=== PATIENT | female | born 1960 | race Hispanic/Latino ===

== ENCOUNTER 2018-02-15 23:44 | Emergency (ER) | payer MEDICAID ==
[2018-02-16 00:18] LABS: BASOPHILS % (AUTO) 0.6 % (0.0-5.0); EOSINOPHILS % (AUTO) 2.1 % (0.0-8.0); HEMATOCRIT 37.1 % (36-48); LYMPHOCYTES % (AUTO) 19.3 % (21.0-51.0); MEAN CORPUSCULAR HEMOGLOBIN 28.1 pg (27.0-33.0); MEAN CORPUSCULAR HGB CONC 33.8 g/dL (32.0-36.0); MEAN CORPUSCULAR VOLUME 83.2 fL (79-99); PLATELET COUNT (AUTO) 339 K/uL (130-400); RED BLOOD CELL COUNT(AUTO) 4.46 MIL/uL (4.00-5.50); RED CELL DISTRIBUTION WIDTH 15.1 % (11.0-15.5); WHITE BLOOD COUNT (AUTO) 12.2 K/uL (4.8-10.8)
[2018-02-16 00:30] LABS: ALBUMIN 2.9 g/dL (3.5-5.0); BILIRUBIN,TOTAL 0.2 mg/dL (0.2-1.0); CREATININE 0.9 mg/dL (0.5-1.5); POTASSIUM 3.8 mmol/L (3.5-5.1); TOTAL PROTEIN, SERUM 7.4 g/dL (6.0-8.3)
[2018-02-16] MEDS ORDERED: KETOROLAC TROMETHAMINE 30MG/ML ONE (00:40)
[2018-02-16] MEDS ORDERED: SODIUM CHLORIDE 0.9% 1000ML 1,000 ML IV ONE (01:04)
[2018-02-16] MEDS ORDERED: INSULIN HUMULIN R 100 UNIT/ML 3ML ONE (01:40)
== END 2018-02-16 02:42 | disposition home or self-care (01) ==
LOC: EDH 23:44
DX: B37.9 Candidiasis, unspecified (principal); E11.65 Type 2 diabetes mellitus with hyperglycemia; I10 Essential (primary) hypertension; J45.909 Unspecified asthma, uncomplicated; M81.0 Age-related osteoporosis without current pathological fracture; Z79.4 Long term (current) use of insulin
CPT/HCPCS: 36415; 80053; 82948 ×2; 85025; 96361; 96372; 96374; 99285; J1815; J1885; J7030

== ENCOUNTER 2018-04-07 09:18 | Emergency (ER) | payer MEDICAID ==
[2018-04-07] MEDS ORDERED: KETOROLAC TROMETHAMINE 30MG/ML ONE (10:04)
[2018-04-07 10:18] LABS: APPEARANCE,URINE CLEAR (CLEAR); BILIRUBIN,URINE SMALL (NEGATIVE); COLOR,URINE YELLOW (YELLOW); GLUCOSE, URINE (UA) >=1000 mg/dL (NEGATIVE); KETONES,URINE 5 mg/dL (NEGATIVE); LEUKOCYTE ESTERASE ,URINE NEGATIVE (NEGATIVE); NITRATE,URINE NEGATIVE (NEGATIVE); OCCULT BLOOD,URINE NEGATIVE (NEGATIVE); PROTEIN,URINE >=300 (NEGATIVE); UROBILINOGEN,URINE 0.2 mg/dL (0.2-1.0)
[2018-04-07 10:31] LABS: BACTERIA,URINE Few /HPF (None Seen); MUCUS,URINE Rare LPF (None Seen); RBC,URINE None Seen /HPF (0-1); SQUAMOUS EPITHELIAL CELL,UR Few /HPF (0-2); WBC,URINE None Seen /HPF (0-1)
[2018-05-09] MEDS ORDERED: METH4TAB15 PO (02:53)
[2018-05-09] MEDS ORDERED: HYDR-3421 PO (02:53)
[2018-05-09] MEDS ORDERED: TRAM50TA4 PO (02:57)
[2018-05-09] MEDS ORDERED: LORA10CA9 PO (02:57)
[2018-05-09] MEDS ORDERED: GABA-531 PO (02:57)
[2018-05-09] MEDS ORDERED: TERB250T51 PO (03:13)
[2018-05-09] MEDS ORDERED: ENAL20TA PO (03:13)
[2018-05-09] MEDS ORDERED: SULF500T8 PO (03:13)
[2018-05-09] MEDS ORDERED: NAPR-1174 PO (03:13)
[2018-05-09] MEDS ORDERED: ATOR40TA71 PO (03:13)
[2018-05-09] MEDS ORDERED: FOLI1TAB15 PO (03:13)
[2018-05-09] MEDS ORDERED: AMLO10TA2 PO (03:13)
[2018-05-09] MEDS ORDERED: ASPI-891 PO (03:16)
== END 2018-04-07 11:01 | disposition home or self-care (01) ==
LOC: EDH 09:18
DX: G89.29 Other chronic pain (principal); M54.9 Dorsalgia, unspecified; R21 Rash and other nonspecific skin eruption; M19.90 Unspecified osteoarthritis, unspecified site; J45.909 Unspecified asthma, uncomplicated; E11.9 Type 2 diabetes mellitus without complications; I10 Essential (primary) hypertension; M81.0 Age-related osteoporosis without current pathological fracture; Z98.890 Other specified postprocedural states
CPT/HCPCS: 81001; 96372; 99283; J1885

== ENCOUNTER 2018-07-21 19:57 | Emergency (ER) | payer MEDICAID ==
[~2018-07-21 19:57] MED LIST: AMLO10TA6 PO; ASPI-891 PO; ATOR40TA71 PO; ENAL20TA PO; FOLI1TAB15 PO; GABA-531 PO; HYDR-3421 PO; LORA10CA9 PO; METH4TAB15 PO; NAPR-1174 PO; SULF500T8 PO; TERB250T51 PO; TRAM50TA4 PO
[2018-07-21 20:55] LABS: APPEARANCE,URINE CLEAR (CLEAR); BILIRUBIN,URINE NEGATIVE (NEGATIVE); COLOR,URINE YELLOW (YELLOW); GLUCOSE, URINE (UA) NEGATIVE (NEGATIVE); KETONES,URINE NEGATIVE (NEGATIVE); LEUKOCYTE ESTERASE ,URINE NEGATIVE (NEGATIVE); NITRATE,URINE NEGATIVE (NEGATIVE); OCCULT BLOOD,URINE TRACE-INTACT (NEGATIVE); PROTEIN,URINE 100 (NEGATIVE); UROBILINOGEN,URINE 0.2 mg/dL (0.2-1.0)
[2018-07-21 21:17] LABS: BACTERIA,URINE Few /HPF (None Seen); RBC,URINE 0-1 /HPF (0-1); SQUAMOUS EPITHELIAL CELL,UR 0-2 /HPF (0-2)
[2018-07-21 21:38] LABS: BASOPHILS % (AUTO) 0.8 % (0.0-5.0); EOSINOPHILS % (AUTO) 2.5 % (0.0-8.0); HEMATOCRIT 30.1 % (36-48); LYMPHOCYTES % (AUTO) 26.6 % (21.0-51.0); MEAN CORPUSCULAR HEMOGLOBIN 25.3 pg (27.0-33.0); MEAN CORPUSCULAR HGB CONC 31.7 g/dL (32.0-36.0); MEAN CORPUSCULAR VOLUME 79.7 fL (79-99); MONOCYTES % (AUTO) 5.5 % (3.0-13.0); NEUTROPHILS % (AUTO) 64.6 % (40.0-77.0); PLATELET COUNT (AUTO) 343 K/uL (130-400); RED BLOOD CELL COUNT(AUTO) 3.78 MIL/uL (4.00-5.50); RED CELL DISTRIBUTION WIDTH 17.5 % (11.0-15.5); WHITE BLOOD COUNT (AUTO) 9.6 K/uL (4.8-10.8)
[2018-07-21 21:47] LABS: CREATININE 0.7 mg/dL (0.5-1.5); POTASSIUM 4.3 mmol/L (3.5-5.1)
[2018-07-21 21:52] LABS: ALBUMIN 2.7 g/dL (3.5-5.0); BILIRUBIN,TOTAL 0.1 mg/dL (0.2-1.0); TOTAL PROTEIN, SERUM 7.1 g/dL (6.0-8.3)
== END 2018-07-21 22:02 | disposition home or self-care (01) ==
LOC: EDH 19:57
DX: B34.9 Viral infection, unspecified (principal); E11.65 Type 2 diabetes mellitus with hyperglycemia; I10 Essential (primary) hypertension; R53.83 Other fatigue; J45.909 Unspecified asthma, uncomplicated; M81.0 Age-related osteoporosis without current pathological fracture; M06.9 Rheumatoid arthritis, unspecified; Z79.4 Long term (current) use of insulin
CPT/HCPCS: 36415; 80053; 81001; 82948; 85025; 93005

== ENCOUNTER 2019-02-20 11:02 | Emergency (ER) | payer MEDICAID ==
[~2019-02-20 11:02] MED LIST changes: -AMLO10TA6 PO; +AMLO10TA7 PO
[2019-02-20] MEDS ORDERED: NITROGLYCERIN 0.4 MG SL TAB SL ONE (11:33)
[2019-02-20 11:41] LABS: BASOPHILS % (AUTO) 0.1 % (0.0-5.0); EOSINOPHILS % (AUTO) 2.3 % (0.0-8.0); HEMATOCRIT 34.9 % (36-48); LYMPHOCYTES % (AUTO) 33.2 % (21.0-51.0); MEAN CORPUSCULAR HEMOGLOBIN 29.1 pg (27.0-33.0); MEAN CORPUSCULAR HGB CONC 33.9 g/dL (32.0-36.0); MEAN CORPUSCULAR VOLUME 85.8 fL (79-99); MONOCYTES % (AUTO) 6.8 % (3.0-13.0); NEUTROPHILS % (AUTO) 57.6 % (40.0-77.0); PLATELET COUNT (AUTO) 228 K/uL (130-400); RED BLOOD CELL COUNT(AUTO) 4.06 MIL/uL (4.00-5.50); RED CELL DISTRIBUTION WIDTH 13.8 % (11.0-15.5); WHITE BLOOD COUNT (AUTO) 7.9 K/uL (4.8-10.8)
[2019-02-20 11:51] LABS: CREATININE 0.7 mg/dL (0.5-1.5); POTASSIUM 5.1 mmol/L (3.5-5.1)
[2019-02-20 11:56] LABS: ALBUMIN 3.1 g/dL (3.5-5.0); BILIRUBIN,TOTAL 0.3 mg/dL (0.2-1.0); TOTAL PROTEIN, SERUM 6.8 g/dL (6.0-8.3)
[2019-02-20 11:58] LABS: B-TYPE NATRIURETIC PEPTIDE 122 pg/mL (0-100)
== END 2019-02-20 12:40 | disposition home or self-care (01) ==
LOC: EDH 11:02
DX: I10 Essential (primary) hypertension (principal); R07.89 Other chest pain; E11.9 Type 2 diabetes mellitus without complications; J45.909 Unspecified asthma, uncomplicated; M19.90 Unspecified osteoarthritis, unspecified site; Z98.890 Other specified postprocedural states; Z90.710 Acquired absence of both cervix and uterus
CPT/HCPCS: 36415; 71045; 80053; 83880; 84484; 85025; 85378; 93005

== ENCOUNTER 2019-06-21 02:18 | Emergency (ER) | payer MEDICAID ==
[2019-06-21] MEDS ORDERED: ASPIRIN 325 MG TABLET ONE (02:26)
[2019-06-21 02:40] LABS: BASOPHILS % (AUTO) 0.7 % (0.0-5.0); EOSINOPHILS % (AUTO) 3.5 % (0.0-8.0); HEMATOCRIT 35.8 % (36-48); LYMPHOCYTES % (AUTO) 36.5 % (21.0-51.0); MEAN CORPUSCULAR HEMOGLOBIN 29.2 pg (27.0-33.0); MEAN CORPUSCULAR HGB CONC 33.4 g/dL (32.0-36.0); MEAN CORPUSCULAR VOLUME 87.6 fL (79-99); MONOCYTES % (AUTO) 10.4 % (3.0-13.0); NEUTROPHILS % (AUTO) 48.9 % (40.0-77.0); NUCLEATED RED BLOOD CELLS 0.1 % (0.0-0.19); PLATELET COUNT (AUTO) 237 K/uL (130-400); RED BLOOD CELL COUNT(AUTO) 4.09 MIL/uL (4.00-5.50); RED CELL DISTRIBUTION WIDTH 15.5 % (11.0-15.5); WHITE BLOOD COUNT (AUTO) 7.4 K/uL (4.8-10.8)
[2019-06-21 02:53] LABS: INR 1.01 (0.85-1.15); PARTIAL THROMBOPLASTIN TIME 26.4 SEC (26.3-35.5); PROTHROMBIN TIME 10.6 SEC (9.6-11.6)
[2019-06-21 02:56] LABS: CREATININE 0.8 mg/dL (0.5-1.5); POTASSIUM 3.4 mmol/L (3.5-5.1)
[2019-06-21 03:06] LABS: BILIRUBIN,TOTAL 0.2 mg/dL (0.2-1.0); TOTAL PROTEIN, SERUM 6.6 g/dL (6.0-8.3)
== END 2019-06-21 05:35 | disposition home or self-care (01) ==
LOC: EDH 02:18
DX: R07.89 Other chest pain (principal); I10 Essential (primary) hypertension; E11.9 Type 2 diabetes mellitus without complications; M19.90 Unspecified osteoarthritis, unspecified site; J45.909 Unspecified asthma, uncomplicated; Z79.4 Long term (current) use of insulin
CPT/HCPCS: 36415; 71045; 80053; 82550; 83874; 84484; 85025; 85610; 85730; 93005

== ENCOUNTER → 2019-08-16 | Outpatient (CLI) | payer MEDICAID | END | disposition home or self-care (01) | LOC: SHCH 08:54 | PROVIDERS: ATTEND Internal Medicine Cardiovascular Disease | DX: I73.9 Peripheral vascular disease, unspecified (principal); I10 Essential (primary) hypertension; I25.10 Atherosclerotic heart disease of native coronary artery without angina pectoris | CPT/HCPCS: 93925 ==

== ENCOUNTER 2019-08-17 10:48 | Emergency (ER) | payer MEDICAID ==
[2019-08-17 11:30] LABS: BASOPHILS % (AUTO) 0.5 % (0.0-5.0); EOSINOPHILS % (AUTO) 1.6 % (0.0-8.0); HEMATOCRIT 35.8 % (36-48); LYMPHOCYTES % (AUTO) 22.5 % (21.0-51.0); MEAN CORPUSCULAR HEMOGLOBIN 30.2 pg (27.0-33.0); MEAN CORPUSCULAR HGB CONC 33.8 g/dL (32.0-36.0); MEAN CORPUSCULAR VOLUME 89.2 fL (79-99); MONOCYTES % (AUTO) 6.5 % (3.0-13.0); NEUTROPHILS % (AUTO) 68.9 % (40.0-77.0); NUCLEATED RED BLOOD CELLS 0.1 % (0.0-0.19); PLATELET COUNT (AUTO) 237 K/uL (130-400); RED BLOOD CELL COUNT(AUTO) 4.02 MIL/uL (4.00-5.50); RED CELL DISTRIBUTION WIDTH 15.1 % (11.0-15.5); WHITE BLOOD COUNT (AUTO) 9.8 K/uL (4.8-10.8)
[2019-08-17 11:42] LABS: CREATININE 0.8 mg/dL (0.5-1.5); INR 1.01 (0.85-1.15); PARTIAL THROMBOPLASTIN TIME 26.1 SEC (26.3-35.5); POTASSIUM 4.5 mmol/L (3.5-5.1); PROTHROMBIN TIME 10.6 SEC (9.6-11.6)
[2019-08-17 11:47] LABS: ALBUMIN 3.1 g/dL (3.5-5.0); BILIRUBIN,TOTAL 0.3 mg/dL (0.2-1.0); TOTAL PROTEIN, SERUM 7.3 g/dL (6.0-8.3)
[2019-08-17 13:08] LABS: APPEARANCE,URINE Clear (CLEAR); BILIRUBIN,URINE Negative (NEGATIVE); COLOR,URINE Yellow (YELLOW); GLUCOSE, URINE (UA) >=1000 mg/dL (NEGATIVE); KETONES,URINE Negative (NEGATIVE); LEUKOCYTE ESTERASE ,URINE Negative (NEGATIVE); NITRATE,URINE Negative (NEGATIVE); OCCULT BLOOD,URINE Small (NEGATIVE); PROTEIN,URINE 300 mg/dL (NEGATIVE)
[2019-08-17 13:40] LABS: BACTERIA,URINE Few /HPF (None Seen); SQUAMOUS EPITHELIAL CELL,UR 0-2 /HPF (0-2); WBC,URINE 0-1 /HPF (0-1)
== END 2019-08-17 14:58 | disposition home or self-care (01) ==
LOC: EDH 10:48
DX: R33.9 Retention of urine, unspecified (principal); I10 Essential (primary) hypertension; E11.65 Type 2 diabetes mellitus with hyperglycemia; J45.909 Unspecified asthma, uncomplicated; M81.0 Age-related osteoporosis without current pathological fracture; M06.9 Rheumatoid arthritis, unspecified; Z79.4 Long term (current) use of insulin
CPT/HCPCS: 36415; 51702; 71045; 80053; 81001; 82550; 83880; 84484; 85025; 85610; 85730; 93005

== ENCOUNTER 2019-09-04 11:38 | Emergency (ER) | payer MEDICAID ==
[2019-09-04] MEDS ORDERED: IPRATROPIUM/ALBUTEROL SULFATE 3 ML SOLUTION IH ONE ×2 (12:36→15:30)
[2019-09-04] MEDS ORDERED: FUROSEMIDE 10 MG/ML 4ML VIAL ONE (13:15)
[2019-09-04 13:28] LABS: BASOPHILS % (AUTO) 0.7 % (0.0-5.0); EOSINOPHILS % (AUTO) 1.5 % (0.0-8.0); LYMPHOCYTES % (AUTO) 26.2 % (21.0-51.0); MEAN CORPUSCULAR HEMOGLOBIN 29.7 pg (27.0-33.0); MEAN CORPUSCULAR HGB CONC 33.2 g/dL (32.0-36.0); MEAN CORPUSCULAR VOLUME 89.4 fL (79-99); MONOCYTES % (AUTO) 5.8 % (3.0-13.0); NEUTROPHILS % (AUTO) 65.8 % (40.0-77.0); NUCLEATED RED BLOOD CELLS 0.1 % (0.0-0.19); PLATELET COUNT (AUTO) 244 K/uL (130-400); RED CELL DISTRIBUTION WIDTH 15.3 % (11.0-15.5); WHITE BLOOD COUNT (AUTO) 9.3 K/uL (4.8-10.8)
[2019-09-04] MEDS ORDERED: CEFTRIAXONE SODIUM 1 GM ONE (13:48)
[2019-09-04] MEDS ORDERED: HYDRALAZINE HCL 20 MG/ML VIAL ONE (13:48)
[2019-09-04] MEDS ORDERED: SODIUM CHLORIDE 0.9% 50 ML IV ONE (13:49)
[2019-09-04 14:06] LABS: CREATININE 0.7 mg/dL (0.5-1.5); POTASSIUM 3.8 mmol/L (3.5-5.1)
[2019-09-04 14:10] LABS: ALBUMIN 3.1 g/dL (3.5-5.0); BILIRUBIN,TOTAL 0.4 mg/dL (0.2-1.0); TOTAL PROTEIN, SERUM 7.5 g/dL (6.0-8.3)
[2019-09-04 14:55] LABS: APPEARANCE,URINE Clear (CLEAR); BILIRUBIN,URINE Negative (NEGATIVE); COLOR,URINE Yellow (YELLOW); GLUCOSE, URINE (UA) Negative (NEGATIVE); KETONES,URINE Negative (NEGATIVE); LEUKOCYTE ESTERASE ,URINE Negative (NEGATIVE); NITRATE,URINE Negative (NEGATIVE); OCCULT BLOOD,URINE Negative (NEGATIVE); PH,URINE 6.5 (5.0-8.0); PROTEIN,URINE Trace mg/dL (NEGATIVE); UROBILINOGEN,URINE 0.2 mg/dL (0.2-1.0)
[2019-09-04 15:50] LABS: BACTERIA,URINE Few /HPF (None Seen); RBC,URINE 0-1 /HPF (0-1); WBC,URINE 0-1 /HPF (0-1)
[2019-09-04 15:51] LABS: SQUAMOUS EPITHELIAL CELL,UR 0-2 /HPF (0-2)
== END 2019-09-04 15:48 | disposition home or self-care (01) ==
LOC: EDH 11:38
DX: J98.01 Acute bronchospasm (principal); J18.8 Other pneumonia, unspecified organism; J81.1 Chronic pulmonary edema; I16.0 Hypertensive urgency; E11.9 Type 2 diabetes mellitus without complications; M81.0 Age-related osteoporosis without current pathological fracture; M06.9 Rheumatoid arthritis, unspecified; Z79.4 Long term (current) use of insulin
CPT/HCPCS: 36415; 71045; 80053; 81001; 84484; 85025; 85378; 93005; 94640 ×2; 96365; 96375; 99291; J0360; J0696; J1940

== ENCOUNTER → 2019-12-27 | Outpatient (CLI) | payer MEDICAID ==
[~2019-12-27] MED LIST changes: +IOHEXOL 350 MG/ML 100ML INFUS..BTL IV ONE; +IOHEXOL-350 50ML VIAL IV ONE
== END | disposition home or self-care (01) ==
LOC: RAH 08:37
PROVIDERS: ATTEND Internal Medicine Cardiovascular Disease
DX: I70.203 Unspecified atherosclerosis of native arteries of extremities, bilateral legs (principal); I25.10 Atherosclerotic heart disease of native coronary artery without angina pectoris; J98.11 Atelectasis; N28.1 Cyst of kidney, acquired
CPT/HCPCS: 75635; Q9967 ×2

== ENCOUNTER 2020-09-04 21:17 | Emergency (ER) | payer MEDICAID ==
[~2020-09-04 21:17] MED LIST changes: +AMLO-258 PO; -AMLO10TA7 PO; -ENAL20TA PO; +ENAL20TA18 PO; -IOHEXOL 350 MG/ML 100ML INFUS..BTL IV ONE; -IOHEXOL-350 50ML VIAL IV ONE
[2020-09-04 22:27] LABS: APPEARANCE,URINE Clear (CLEAR); BILIRUBIN,URINE Negative (NEGATIVE); COLOR,URINE Yellow (YELLOW); GLUCOSE, URINE (UA) 500 mg/dL (NEGATIVE); KETONES,URINE Negative (NEGATIVE); LEUKOCYTE ESTERASE ,URINE Negative (NEGATIVE); NITRATE,URINE Negative (NEGATIVE); OCCULT BLOOD,URINE Small (NEGATIVE); PH,URINE 5.5 (5.0-8.0); PROTEIN,URINE 300 mg/dL (NEGATIVE); UROBILINOGEN,URINE 0.2 mg/dL (0.2-1.0)
[2020-09-04 23:19] LABS: AMORPHOUS SEDIMENT,UR Few /LPF (None Seen); BACTERIA,URINE None Seen /HPF (None Seen); RBC,URINE 0-1 /HPF (0-1); SQUAMOUS EPITHELIAL CELL,UR Rare /HPF (0-2); WBC,URINE None Seen /HPF (0-1)
== END 2020-09-05 02:47 | disposition home or self-care (01) ==
LOC: EDH 21:17
DX: R33.9 Retention of urine, unspecified (principal); J45.909 Unspecified asthma, uncomplicated; M19.90 Unspecified osteoarthritis, unspecified site; M81.0 Age-related osteoporosis without current pathological fracture; M06.9 Rheumatoid arthritis, unspecified
CPT/HCPCS: 51702; 81001

== ENCOUNTER 2020-10-03 10:20 | Inpatient (IN) | payer MEDICAID ==
[~2020-10-03] VITALS: Ht 142.2 cm; Wt 77.1 kg
[2020-10-03] MEDS ORDERED: ASPIRIN 325 MG TABLET ONE (10:53)
[2020-10-03 10:57] LABS: BASOPHILS % (AUTO) 0.3 % (0.0-5.0); EOSINOPHILS % (AUTO) 2.8 % (0.0-8.0); HEMATOCRIT 37.5 % (36-48); LYMPHOCYTES % (AUTO) 19.7 % (21.0-51.0); MEAN CORPUSCULAR HEMOGLOBIN 27.5 pg (27.0-33.0); MEAN CORPUSCULAR HGB CONC 32.3 g/dL (32.0-36.0); MEAN CORPUSCULAR VOLUME 85.2 fL (79-99); MONOCYTES % (AUTO) 5.6 % (3.0-13.0); NEUTROPHILS % (AUTO) 71.2 % (40.0-77.0); PLATELET COUNT (AUTO) 258 K/uL (130-400); RED CELL DISTRIBUTION WIDTH 13.9 % (11.0-15.5); WHITE BLOOD COUNT (AUTO) 8.9 K/uL (4.8-10.8)
[2020-10-03 11:08] LABS: POTASSIUM 4.3 mmol/L (3.5-5.1)
[2020-10-03 11:12] LABS: BILIRUBIN,TOTAL 0.2 mg/dL (0.2-1.0); TOTAL PROTEIN, SERUM 6.2 g/dL (6.0-8.3)
[2020-10-03 11:35] LABS: B-TYPE NATRIURETIC PEPTIDE 100 pg/mL (0-100)
[2020-10-03 11:55] LABS: INR 0.94 (0.85-1.15); PARTIAL THROMBOPLASTIN TIME 20.8 SEC (26.3-35.5); PROTHROMBIN TIME 10.2 SEC (9.6-11.6)
[2020-10-03] MEDS ORDERED: NITROGLYCERIN 1GM/1 INCH PACKET TD ONE (12:53)
[2020-10-03] MEDS ORDERED: ACETAMINOPHEN 325 MG TAB PO PRN ×2 (13:15)
[2020-10-03] MEDS: NITROGLYCERIN 1GM/1 INCH PACKET TD SCH ×2 (13:15→22:38)
[2020-10-03] MEDS ORDERED: ONDANSETRON HCL 4 MG/2 ML VIAL IV PRN (13:15)
[2020-10-03] MEDS ORDERED: LACTULOSE 20 GM/30 ML UDCUP PO PRN (13:15)
[2020-10-03 13:55] LABS: CREATINE KINASE, TOTAL 86 U/L (21-232); MYOGLOBIN 25 ng/mL (10-92); THYROID STIMULATING HORMONE 3.84 uIU/mL (0.36-3.74); TROPONIN I < 0.04 ng/mL (0.00-0.06)
[2020-10-03] MEDS: FUROSEMIDE 10 MG/ML 4ML VIAL IVP SCH ×2 (14:00→22:34)
[2020-10-03] MEDS ORDERED: FUROSEMIDE 10 MG/ML 4ML VIAL ONE (14:46)
[2020-10-03 15:22] LABS: APPEARANCE,URINE Clear (CLEAR); BILIRUBIN,URINE Negative (NEGATIVE); COLOR,URINE Yellow (YELLOW); GLUCOSE, URINE (UA) 500 mg/dL (NEGATIVE); KETONES,URINE Negative (NEGATIVE); LEUKOCYTE ESTERASE ,URINE Negative (NEGATIVE); NITRATE,URINE Negative (NEGATIVE); OCCULT BLOOD,URINE Small (NEGATIVE); PH,URINE 6.5 (5.0-8.0); PROTEIN,URINE >=1000 mg/dL (NEGATIVE)
[2020-10-03 15:42] LABS: BACTERIA,URINE Rare /HPF (None Seen); MUCUS,URINE Few LPF (None Seen); RBC,URINE 0-1 /HPF (0-1); WBC,URINE 0-1 /HPF (0-1)
[2020-10-03 15:43] LABS: HYALINE CASTS, URINE 0-1 /LPF (0-1 /LPF)
[2020-10-03] MEDS: INSULIN LISPRO 100 UNIT/ML 3ML SQ SCH ×3 (16:30→22:35)
[2020-10-03 17:34] VITALS: BP 201/100
[2020-10-03 19:50] VITALS: BP 191/78
[2020-10-03 21:31] LABS: CREATINE KINASE, TOTAL 78 U/L (21-232); MYOGLOBIN 25 ng/mL (10-92); TROPONIN I < 0.04 ng/mL (0.00-0.06)
[2020-10-03] MEDS: FAMOTIDINE 20MG TAB 20 MG TAB PO SCH (22:34)
[2020-10-03] MEDS: INSULIN GLARGINE 100 UNITS/ML 10 ML VIAL SQ SCH (22:36)
[2020-10-04] VITALS (7 sets, daily range): BP systolic 126–174; BP diastolic 68–85
[2020-10-04 04:41] LABS: CARBON DIOXIDE 30 mmol/L (21-32); CHLORIDE 106 mmol/L (101-111); CREATININE 0.8 mg/dL (0.5-1.5); GLOMERULAR FILTR. RATE CALC 78 mL/min (>60); GLUCOSE,RANDOM 87 mg/dL (70-105); POTASSIUM 3.3 mmol/L (3.5-5.1); SODIUM SERUM 143 mmol/L (136-145); UREA NITROGEN, BLOOD 16 mg/dL (7-18)
[2020-10-04 04:54] LABS: CHOLESTEROL 306 mg/dL (<200); CREATINE KINASE, TOTAL 73 U/L (21-232); HDL CHOLESTEROL 68 mg/dL (35-85); LDL DIRECT 202 mg/dL (0-99); MYOGLOBIN 27 ng/mL (10-92); TRIGLYCERIDES 215 mg/dL (30-200); TROPONIN I < 0.04 ng/mL (0.00-0.06)
[2020-10-04] MEDS: INSULIN LISPRO 100 UNIT/ML 3ML SQ SCH ×7 (06:01→20:34)
[2020-10-04] MEDS: NITROGLYCERIN 1GM/1 INCH PACKET TD SCH ×3 (06:02→20:55)
[2020-10-04] MEDS ORDERED: POTASSIUM CHLORIDE 20MEQ/100ML 100 ML IV PRN ×2 (08:00→10:00)
[2020-10-04] MEDS ORDERED: POTASSIUM CHLORIDE 10% ELIXIR 20 MEQ/15 ML UDCUP PO PRN ×2 (08:00→10:00)
[2020-10-04] MEDS ORDERED: POTASSIUM CHLORIDE 20 MEQ ERTAB PO PRN ×2 (08:00→10:00)
[2020-10-04] MEDS: FAMOTIDINE 20MG TAB 20 MG TAB PO SCH ×2 (09:37→20:34)
[2020-10-04] MEDS: ASPIRIN 325 MG TABLET PO SCH (09:37)
[2020-10-04] MEDS: FUROSEMIDE 10 MG/ML 4ML VIAL IVP SCH ×3 (09:37→20:34)
[2020-10-04] MEDS: METOPROLOL TARTRATE 25 MG TAB PO SCH ×2 (09:38→20:34)
[2020-10-04] MEDS: ENOXAPARIN SODIUM 40 MG/0.4 ML SYRINGE SQ SCH (09:38)
[2020-10-04] MEDS ORDERED: LIDOCAINE HCL-MPF 1% 2ML VIAL IV PRN (10:00)
[2020-10-04] MEDS ORDERED: SODIUM CHLORIDE 0.9% 250 ML IV ONE (12:53)
[2020-10-04 13:43] LABS: MAGNESIUM 1.9 mg/dL (1.80-2.40)
[2020-10-04] MEDS: SULFASALAZINE 500 MG TAB.DR PO SCH (20:34)
[2020-10-04] MEDS: INSULIN GLARGINE 100 UNITS/ML 10 ML VIAL SQ SCH (20:41)
[2020-10-04] MEDS ORDERED: SULFASALAZINE PO SCH (21:00)
[2020-10-05] VITALS: BP 139/62
[2020-10-05 03:59] VITALS: BP 153/70
[2020-10-05] MEDS: NITROGLYCERIN 1GM/1 INCH PACKET TD SCH ×2 (05:04→13:15)
[2020-10-05] MEDS: INSULIN LISPRO 100 UNIT/ML 3ML SQ SCH ×4 (06:31→11:45)
[2020-10-05 08:00] VITALS: BP 154/70
[2020-10-05] MEDS ORDERED: FUROSEMIDE 40 MG TABLET PO SCH (09:00)
[2020-10-05] MEDS: ASPIRIN 325 MG TABLET PO SCH (09:08)
[2020-10-05] MEDS: SULFASALAZINE 500 MG TAB.DR PO SCH (09:08)
[2020-10-05] MEDS: FAMOTIDINE 20MG TAB 20 MG TAB PO SCH (09:08)
[2020-10-05] MEDS: ENOXAPARIN SODIUM 40 MG/0.4 ML SYRINGE SQ SCH (09:14)
[2020-10-05 12:00] VITALS: BP 163/74
[2020-10-05 16:00] VITALS: BP 163/71
== END 2020-10-05 17:00 | disposition home or self-care (01) | DRG 194 ==
LOC: EDH 10:20 → EDHIP 10:21 → 4BH 17:05
PROVIDERS: ADMIT Internal Medicine; ATTEND Internal Medicine
DX: I11.0 Hypertensive heart disease with heart failure (principal); R09.02 Hypoxemia; E78.5 Hyperlipidemia, unspecified; M81.0 Age-related osteoporosis without current pathological fracture; J45.909 Unspecified asthma, uncomplicated; M06.9 Rheumatoid arthritis, unspecified; E11.9 Type 2 diabetes mellitus without complications; G47.30 Sleep apnea, unspecified; Z79.4 Long term (current) use of insulin; Z79.899 Other long term (current) drug therapy; Z91.11 Patient's noncompliance with dietary regimen; Z91.14 Patient's other noncompliance with medication regimen; Z91.19 Patient's noncompliance with other medical treatment and regimen; I50.33 Acute on chronic diastolic (congestive) heart failure
CPT/HCPCS: 36415; 71045; 80048; 80053; 80061; 81001; 82550; 82948; 83036; 83735; 83874; 83880; 84145; 84439; 84443; 84484; 85025; 85610; 85730; 93005; 93306; 93356; 94760; G0378; J1650; J1940; J3480; J3490; J7050

== ENCOUNTER 2020-11-09 12:18 | Emergency (ER) | payer MEDICAID ==
[~2020-11-09 12:18] MED LIST changes: -HYDR-3421 PO; -LORA10CA9 PO; -METH4TAB15 PO; -NAPR-1174 PO
[2020-11-09 13:05] LABS: BASOPHILS % (AUTO) 0.5 % (0.0-5.0); EOSINOPHILS % (AUTO) 1.1 % (0.0-8.0); HEMATOCRIT 38.8 % (36-48); LYMPHOCYTES % (AUTO) 19.8 % (21.0-51.0); MEAN CORPUSCULAR HEMOGLOBIN 27.8 pg (27.0-33.0); MEAN CORPUSCULAR HGB CONC 33.2 g/dL (32.0-36.0); MEAN CORPUSCULAR VOLUME 83.6 fL (79-99); NEUTROPHILS % (AUTO) 65.1 % (40.0-77.0); PLATELET COUNT (AUTO) 216 K/uL (130-400); RED BLOOD CELL COUNT(AUTO) 4.64 MIL/uL (4.00-5.50); RED CELL DISTRIBUTION WIDTH 13.7 % (11.0-15.5); WHITE BLOOD COUNT (AUTO) 6.4 K/uL (4.8-10.8)
[2020-11-09 13:17] LABS: RAPID GROUP A STREP NEGATIVE (NEGATIVE)
[2020-11-09 13:17] LABS: INR 0.98 (0.85-1.15); PROTHROMBIN TIME 10.5 SEC (9.6-11.6)
[2020-11-09 13:18] LABS: PARTIAL THROMBOPLASTIN TIME 26.3 SEC (26.3-35.5)
[2020-11-09 13:21] LABS: BILIRUBIN,URINE Negative (NEGATIVE); COLOR,URINE Yellow (YELLOW); GLUCOSE, URINE (UA) 500 mg/dL (NEGATIVE); KETONES,URINE Negative (NEGATIVE); LEUKOCYTE ESTERASE ,URINE Negative (NEGATIVE); NITRATE,URINE Negative (NEGATIVE); OCCULT BLOOD,URINE Small (NEGATIVE); PROTEIN,URINE >=1000 mg/dL (NEGATIVE); UROBILINOGEN,URINE 0.2 mg/dL (0.2-1.0)
[2020-11-09 13:22] LABS: APPEARANCE,URINE Clear (CLEAR); POTASSIUM 4.1 mmol/L (3.5-5.1)
[2020-11-09 13:25] LABS: B-TYPE NATRIURETIC PEPTIDE 110 pg/mL (0-100)
[2020-11-09 13:28] LABS: ALBUMIN 2.2 g/dL (3.5-5.0); BILIRUBIN,TOTAL 0.2 mg/dL (0.2-1.0); TOTAL PROTEIN, SERUM 6.3 g/dL (6.0-8.3)
[2020-11-09 13:30] LABS: BACTERIA,URINE Moderate /HPF (None Seen); MUCUS,URINE Few LPF (None Seen); SQUAMOUS EPITHELIAL CELL,UR 30-50 /HPF (0-2); WBC,URINE None Seen /HPF (0-1)
[2020-11-09] MEDS ORDERED: INSULIN HUMULIN R 100 UNIT/ML 3ML ONE (14:54)
[2020-11-09 15:01] LABS: ABG BASE EXCESS 0.6 mmol/L (-2.0-3.0); ABG HCO3 25.1 mmol/L (21.0-28.0); ABG OXYGEN SATURATION 95.4 % (95.0-99.0); ABG PCO2 40 mmHg (32-45)
== END 2020-11-09 17:32 | disposition home or self-care (01) ==
LOC: EDH 12:18
DX: U07.1 COVID-19 (principal); I10 Essential (primary) hypertension; E11.65 Type 2 diabetes mellitus with hyperglycemia; M06.9 Rheumatoid arthritis, unspecified; J45.909 Unspecified asthma, uncomplicated; M81.0 Age-related osteoporosis without current pathological fracture; M19.90 Unspecified osteoarthritis, unspecified site
CPT/HCPCS: 36415; 36600; 71045; 80053; 81001; 82550; 82803; 82948 ×2; 83690; 83880; 84484; 85025; 85378; 85610; 85730; 87040 ×2; 87088; 87426; 87804 ×2; 87880; 93005; 96374; 99285; J1815

== ENCOUNTER 2020-11-28 18:04 | Emergency (ER) | payer MEDICAID ==
[2020-11-28 18:50] LABS: APPEARANCE,URINE Cloudy (CLEAR); BILIRUBIN,URINE Negative (NEGATIVE); COLOR,URINE Yellow (YELLOW); GLUCOSE, URINE (UA) 250 mg/dL (NEGATIVE); KETONES,URINE Negative (NEGATIVE); LEUKOCYTE ESTERASE ,URINE Negative (NEGATIVE); NITRATE,URINE Negative (NEGATIVE); OCCULT BLOOD,URINE Small (NEGATIVE); PH,URINE 5.5 (5.0-8.0); PROTEIN,URINE 300 mg/dL (NEGATIVE); UROBILINOGEN,URINE 0.2 mg/dL (0.2-1.0)
[2020-11-28 19:01] LABS: BACTERIA,URINE Few /HPF (None Seen); MUCUS,URINE Rare LPF (None Seen); SQUAMOUS EPITHELIAL CELL,UR 0-2 /HPF (0-2)
[2020-11-28 19:02] LABS: AMORPHOUS SEDIMENT,UR Many /LPF (None Seen)
== END 2020-11-28 19:12 | disposition home or self-care (01) ==
LOC: EDH 18:04
DX: R33.9 Retention of urine, unspecified (principal); M19.90 Unspecified osteoarthritis, unspecified site; J45.909 Unspecified asthma, uncomplicated; E11.9 Type 2 diabetes mellitus without complications; I10 Essential (primary) hypertension; M06.9 Rheumatoid arthritis, unspecified
CPT/HCPCS: 51702; 81001

== ENCOUNTER → 2020-12-31 | Outpatient (CLI) | payer MEDICAID ==
[~2020-12-31] VITALS: Ht 149.9 cm; Wt 78.0 kg
[~2020-12-31] MED LIST changes: +REGADENOSON 0.4 MG/5 ML PF SYG IVP SCH
== END | disposition home or self-care (01) ==
LOC: SHCH 08:06
PROVIDERS: ATTEND Internal Medicine Cardiovascular Disease
DX: I25.119 Atherosclerotic heart disease of native coronary artery with unspecified angina pectoris (principal); I50.32 Chronic diastolic (congestive) heart failure; R06.00 Dyspnea, unspecified
CPT/HCPCS: 78452; 93017; 96374; A9500 ×2; J2785

== ENCOUNTER 2021-02-11 02:39 | Emergency (ER) | payer MEDICAID ==
[~2021-02-11 02:39] MED LIST changes: -REGADENOSON 0.4 MG/5 ML PF SYG IVP SCH
[2021-02-11] MEDS ORDERED: CLONIDINE HCL 0.2 MG TABLET PO ONE (04:07)
[2021-02-11] MEDS ORDERED: PROCHLORPERAZINE EDISYLATE 10 MG/2 ML VIAL ONE (04:46)
[2021-02-11] MEDS ORDERED: METHYLPREDNISOLONE SOD SUCC 40MG/ML 1ML ONE (04:46)
[2021-02-11] MEDS ORDERED: SODIUM CHLORIDE 0.9% 1000ML 1,000 ML IV ONE (04:47)
[2021-02-11 05:27] LABS: BASOPHILS % (AUTO) 0.8 % (0.0-5.0); EOSINOPHILS % (AUTO) 2.7 % (0.0-8.0); HEMATOCRIT 36.1 % (36-48); LYMPHOCYTES % (AUTO) 24.1 % (21.0-51.0); MEAN CORPUSCULAR HEMOGLOBIN 28.8 pg (27.0-33.0); MEAN CORPUSCULAR HGB CONC 33.2 g/dL (32.0-36.0); MEAN CORPUSCULAR VOLUME 86.6 fL (79-99); MONOCYTES % (AUTO) 7.7 % (3.0-13.0); NEUTROPHILS % (AUTO) 64.4 % (40.0-77.0); PLATELET COUNT (AUTO) 278 K/uL (130-400); RED BLOOD CELL COUNT(AUTO) 4.17 MIL/uL (4.00-5.50); RED CELL DISTRIBUTION WIDTH 13.2 % (11.0-15.5); WHITE BLOOD COUNT (AUTO) 7.8 K/uL (4.8-10.8)
[2021-02-11 05:29] LABS: APPEARANCE,URINE Cloudy (CLEAR); BILIRUBIN,URINE Negative (NEGATIVE); COLOR,URINE Yellow (YELLOW); GLUCOSE, URINE (UA) TRACE mg/dL (NEGATIVE); KETONES,URINE Negative (NEGATIVE); LEUKOCYTE ESTERASE ,URINE Negative (NEGATIVE); NITRATE,URINE Negative (NEGATIVE); OCCULT BLOOD,URINE Trace (NEGATIVE); PH,URINE 5.5 (5.0-8.0); PROTEIN,URINE >=1000 mg/dL (NEGATIVE); UROBILINOGEN,URINE 0.2 mg/dL (0.2-1.0)
[2021-02-11 05:36] LABS: AMPHET/METH SCREEN,URINE NEGATIVE (NEGATIVE); BARBITURATE SCREEN, URINE NEGATIVE (NEGATIVE); BENZODIAZEPINES SCREEN,URINE NEGATIVE (NEGATIVE); CANNABINOID SCREEN,URINE NEGATIVE (NEGATIVE); COCAINE SCREEN,URINE NEGATIVE (NEGATIVE); OPIATE SCREEN,URINE NEGATIVE (NEGATIVE); PHENCYCLIDINE SCREEN,URINE NEGATIVE (NEGATIVE)
[2021-02-11 05:36] LABS: POTASSIUM 4.3 mmol/L (3.5-5.1)
[2021-02-11 05:41] LABS: ALBUMIN 2.2 g/dL (3.5-5.0); BILIRUBIN,TOTAL 0.1 mg/dL (0.2-1.0); TOTAL PROTEIN, SERUM 6.2 g/dL (6.0-8.3)
[2021-02-11 05:42] LABS: BACTERIA,URINE Few /HPF (None Seen); RBC,URINE None Seen /HPF (0-1); SQUAMOUS EPITHELIAL CELL,UR Moderate /HPF (0-2); WBC,URINE None Seen /HPF (0-1)
[2021-02-11 05:46] LABS: INR 0.98 (0.85-1.15); PARTIAL THROMBOPLASTIN TIME 23.5 SEC (26.3-35.5); PROTHROMBIN TIME 10.2 SEC (9.6-11.6)
== END 2021-02-11 05:53 | disposition home or self-care (01) ==
LOC: EDH 02:39
DX: I10 Essential (primary) hypertension (principal); H81.393 Other peripheral vertigo, bilateral; M06.9 Rheumatoid arthritis, unspecified; M81.0 Age-related osteoporosis without current pathological fracture; E11.9 Type 2 diabetes mellitus without complications; J45.909 Unspecified asthma, uncomplicated; Z90.710 Acquired absence of both cervix and uterus; Z90.49 Acquired absence of other specified parts of digestive tract
CPT/HCPCS: 36415; 80053; 80305; 81001; 84484; 85025; 85610; 85730; 96361; 96374; 96375; 99284; J0780; J2920; J7030

== ENCOUNTER 2021-02-27 11:04 | Emergency (ER) | payer MEDICAID ==
[2021-02-27 11:27] LABS: BASOPHILS % (AUTO) 0.7 % (0.0-5.0); EOSINOPHILS % (AUTO) 3.3 % (0.0-8.0); HEMATOCRIT 38.2 % (36-48); LYMPHOCYTES % (AUTO) 27.4 % (21.0-51.0); MEAN CORPUSCULAR HEMOGLOBIN 28.5 pg (27.0-33.0); MEAN CORPUSCULAR HGB CONC 33.2 g/dL (32.0-36.0); MEAN CORPUSCULAR VOLUME 85.7 fL (79-99); MONOCYTES % (AUTO) 6.9 % (3.0-13.0); NEUTROPHILS % (AUTO) 61.1 % (40.0-77.0); PLATELET COUNT (AUTO) 272 K/uL (130-400); RED BLOOD CELL COUNT(AUTO) 4.46 MIL/uL (4.00-5.50); RED CELL DISTRIBUTION WIDTH 12.7 % (11.0-15.5)
[2021-02-27] MEDS ORDERED: ACETAMINOPHEN 325 MG TAB ONE (11:30)
[2021-02-27] MEDS ORDERED: LABETALOL 20 MG/4 ML DISP.SYRIN IV ONE (11:31)
[2021-02-27 11:43] LABS: ALBUMIN 2.5 g/dL (3.5-5.0); BILIRUBIN,TOTAL 0.2 mg/dL (0.2-1.0); CREATININE 1.2 mg/dL (0.5-1.5); POTASSIUM 4.5 mmol/L (3.5-5.1); TOTAL PROTEIN, SERUM 6.9 g/dL (6.0-8.3)
[2021-02-27 11:55] LABS: APPEARANCE,URINE Clear (CLEAR); BILIRUBIN,URINE Negative (NEGATIVE); COLOR,URINE Yellow (YELLOW); GLUCOSE, URINE (UA) >=1000 mg/dL (NEGATIVE); KETONES,URINE Negative (NEGATIVE); LEUKOCYTE ESTERASE ,URINE Negative (NEGATIVE); NITRATE,URINE Negative (NEGATIVE); OCCULT BLOOD,URINE Negative (NEGATIVE); PROTEIN,URINE 300 mg/dL (NEGATIVE)
[2021-02-27] MEDS ORDERED: INSULIN HUMULIN R 100 UNIT/ML 3ML ONE (12:12)
[2021-02-27 12:14] LABS: RBC,URINE 0-1 /HPF (0-1)
[2021-02-27 12:15] LABS: BACTERIA,URINE Rare /HPF (None Seen); WBC,URINE 0-1 /HPF (0-1)
[2021-02-27 12:16] LABS: SQUAMOUS EPITHELIAL CELL,UR Few /HPF (0-2)
[2021-02-27 12:17] LABS: YEAST,URINE BUDDING Rare /HPF (None Seen)
== END 2021-02-27 14:28 | disposition home or self-care (01) ==
LOC: EDH 11:04
DX: I10 Essential (primary) hypertension (principal); E08.65 Diabetes mellitus due to underlying condition with hyperglycemia; M06.9 Rheumatoid arthritis, unspecified; J45.909 Unspecified asthma, uncomplicated; M19.90 Unspecified osteoarthritis, unspecified site; Z90.49 Acquired absence of other specified parts of digestive tract; Z90.710 Acquired absence of both cervix and uterus; Z98.890 Other specified postprocedural states
CPT/HCPCS: 36415; 76705; 80053; 81001; 82150; 82948; 83690; 85025; 93005; 96361 ×2; 96372; 96374; 96375; 99285; J1815

== ENCOUNTER → 2021-03-14 | Outpatient (CLI) | payer MEDICAID | END | disposition home or self-care (01) | LOC: SHCH 09:29 | PROVIDERS: ATTEND Internal Medicine Cardiovascular Disease | DX: I73.9 Peripheral vascular disease, unspecified (principal) | CPT/HCPCS: 93925 ==

== ENCOUNTER → 2021-05-06 | Outpatient (CLI) | payer MEDICAID ==
[~2021-05-06] MED LIST changes: +REGADENOSON 0.4 MG/5 ML PF SYG IVP SCH
== END | disposition home or self-care (01) ==
LOC: SHCH 07:47
PROVIDERS: ATTEND Internal Medicine Cardiovascular Disease
DX: I11.0 Hypertensive heart disease with heart failure (principal); I50.32 Chronic diastolic (congestive) heart failure; I25.119 Atherosclerotic heart disease of native coronary artery with unspecified angina pectoris; F41.9 Anxiety disorder, unspecified; R53.83 Other fatigue
CPT/HCPCS: 78452; 93017; 96374; A9500 ×2; J2785

== ENCOUNTER 2021-06-17 06:13 | Day surgery (SDC) | payer MEDICAID ==
[2021-06-16 13:11] LABS: BASOPHILS % (AUTO) 0.6 % (0.0-5.0); EOSINOPHILS % (AUTO) 3.6 % (0.0-8.0); HEMATOCRIT 36.1 % (36-48); LYMPHOCYTES % (AUTO) 23.6 % (21.0-51.0); MEAN CORPUSCULAR HEMOGLOBIN 28.3 pg (27.0-33.0); MEAN CORPUSCULAR HGB CONC 32.1 g/dL (32.0-36.0); MONOCYTES % (AUTO) 6.6 % (3.0-13.0); NEUTROPHILS % (AUTO) 65.4 % (40.0-77.0); PLATELET COUNT (AUTO) 274 K/uL (130-400); RED CELL DISTRIBUTION WIDTH 12.8 % (11.0-15.5); WHITE BLOOD COUNT (AUTO) 8.9 K/uL (4.8-10.8)
[2021-06-16 13:16] LABS: APPEARANCE,URINE Clear (CLEAR); BILIRUBIN,URINE Negative (NEGATIVE); COLOR,URINE Yellow (YELLOW); GLUCOSE, URINE (UA) >=1000 mg/dL (NEGATIVE); KETONES,URINE Negative (NEGATIVE); LEUKOCYTE ESTERASE ,URINE Negative (NEGATIVE); NITRATE,URINE Negative (NEGATIVE); OCCULT BLOOD,URINE Trace (NEGATIVE); PH,URINE 6.5 (5.0-8.0); PROTEIN,URINE >=1000 mg/dL (NEGATIVE); UROBILINOGEN,URINE 0.2 mg/dL (0.2-1.0)
[2021-06-16 13:18] LABS: CREATININE 1.1 mg/dL (0.5-1.5); POTASSIUM 5.1 mmol/L (3.5-5.1)
[2021-06-16 13:21] LABS: BACTERIA,URINE Rare /HPF (None Seen); RBC,URINE 0-1 /HPF (0-1); SQUAMOUS EPITHELIAL CELL,UR Rare /HPF (0-2)
[2021-06-16 13:22] LABS: PROTHROMBIN TIME 10.9 SEC (9.6-11.6)
[2021-06-16 13:23] LABS: PARTIAL THROMBOPLASTIN TIME 25.2 SEC (26.3-35.5)
[2021-06-16 13:44] VITALS: BP 175/85
[2021-06-17] VITALS (18 sets, daily range): BP systolic 15–200; BP diastolic 41–82
[~2021-06-17] VITALS: Ht 149.9 cm; Wt 79.7 kg
[~2021-06-17 06:13] MED LIST changes: +ACET1TAB25 PO; +AEC81 PO; -ASPI-891 PO; +CILO50TA PO; +ESOM40CA PO; +FURO40TA5 PO; +IBUP-2070 PO; +INSU100I35 SQ; +ISOS60TA77 PO; +METH2.5T6 PO; +METO50TA18 PO; +NAPR-1023 PO; +PREG50 PO; +PROM25TA7 PO; -REGADENOSON 0.4 MG/5 ML PF SYG IVP SCH; +RISP1TAB89 PO; +SERT-438 PO; +TELM40TA8 PO; -TERB250T51 PO; +VITAD50000 PO
[2021-06-17] MEDS ORDERED: 0.9%NACL 1000ML 1,000 ML IV ONE (06:16)
[2021-06-17] MEDS ORDERED: IOHEXOL 350 MG/ML 100ML INFUS..BTL IV ONE (07:14)
[2021-06-17] MEDS ORDERED: HEPARIN 10,000 UNIT/10ML (1,000 UNIT/ML) VIAL ONE (07:14)
[2021-06-17] MEDS ORDERED: IOHEXOL-350 50ML VIAL IV ONE (07:14)
[2021-06-17] MEDS ORDERED: LIDOCAINE HCL 400MG/20ML VIAL ONE (07:15)
[2021-06-17] MEDS ORDERED: METO25TA6 PO (07:37)
[2021-06-17] MEDS ORDERED: NITR0.4T50 SL (07:37)
[2021-06-17] MEDS ORDERED: LORA10TA7 PO (07:37)
[2021-06-17] MEDS ORDERED: LABETALOL 20MG VIAL IV ONE (07:37)
[2021-06-17] MEDS ORDERED: 0.9%NACL 1000ML 1,000 ML IV SCH (08:00)
[2021-06-17] MEDS ORDERED: GLUCAGON 1MG KIT 1 MG ML IM PRN (08:30)
[2021-06-17] MEDS ORDERED: DEXTROSE 50%-WATER 50 ML DISP.SYRIN IV PRN (08:30)
[2021-06-17] MEDS ORDERED: INSULIN HUMULIN R 100 UNIT/ML 3ML SQ SCH (11:30)
== END 2021-06-17 16:20 | disposition home or self-care (01) ==
LOC: DAH 06:13
PROVIDERS: ATTEND Internal Medicine Cardiovascular Disease
DX: I25.119 Atherosclerotic heart disease of native coronary artery with unspecified angina pectoris (principal); I71.9 Aortic aneurysm of unspecified site, without rupture; I10 Essential (primary) hypertension; I25.2 Old myocardial infarction; Z79.01 Long term (current) use of anticoagulants; Z79.82 Long term (current) use of aspirin; Z79.899 Other long term (current) drug therapy; Z98.890 Other specified postprocedural states
CPT/HCPCS: 36415; 71045; 80048; 81001; 82948 ×2; 85025; 85610; 85730; 93005; 93458; A4215; A4216; A4221; A4222; A4223 ×3; A4335; A4520; A4554; A4606; A4663; C1894; J1644; J3490 ×3; J7030 ×2; Q9965; Q9967

== ENCOUNTER 2021-07-17 08:03 | Inpatient (IN) | payer MEDICAID ==
[~2021-07-17] VITALS: Ht 121.9 cm; Wt 79.5 kg
[~2021-07-17 08:03] MED LIST changes: -ACET1TAB25 PO; -AEC81 PO; -CILO50TA PO; -FOLI1TAB15 PO; +LORA10TA7 PO; -METH2.5T6 PO; +METO25TA6 PO; -NAPR-1023 PO; +NITR0.4T50 SL; -PREG50 PO; -PROM25TA7 PO; -RISP1TAB89 PO; -SERT-438 PO; -SULF500T8 PO; -TELM40TA8 PO; -TRAM50TA4 PO; -VITAD50000 PO
[2021-07-17 08:38] VITALS: BP 177/86
[2021-07-17 08:47] LABS: ABG BASE EXCESS -1.1 mmol/L (-2.0-3.0); ABG HCO3 23.1 mmol/L (21.0-28.0); ABG OXYGEN SATURATION 91.5 % (95.0-99.0); ABG PCO2 37 mmHg (32-45)
[2021-07-17 08:59] LABS: HEMATOCRIT 32.5 % (36-48); MEAN CORPUSCULAR HEMOGLOBIN 27.9 pg (27.0-33.0); MEAN CORPUSCULAR HGB CONC 31.4 g/dL (32.0-36.0); MEAN CORPUSCULAR VOLUME 88.8 fL (79-99); RED BLOOD CELL COUNT(AUTO) 3.66 MIL/uL (4.00-5.50); RED CELL DISTRIBUTION WIDTH 13.4 % (11.0-15.5); WHITE BLOOD COUNT (AUTO) 12.1 K/uL (4.8-10.8)
[2021-07-17] MEDS ORDERED: FUROSEMIDE 20MG VIAL IV ONE (09:00)
[2021-07-17] MEDS ORDERED: NITROGLYCERIN 1GM OINT 1 INCH/1GM TD ONE (09:00)
[2021-07-17 09:10] LABS: CREATININE 1.1 mg/dL (0.5-1.5); POTASSIUM 4.9 mmol/L (3.5-5.1)
[2021-07-17] MEDS ORDERED: FUROSEMIDE 100MG VIAL IM SCH (09:34)
[2021-07-17] MEDS ORDERED: ATOR40TA69 PO (09:43)
[2021-07-17] MEDS ORDERED: AMLO-258 PO (09:43)
[2021-07-17] MEDS ORDERED: FURO40TA5 PO (09:43)
[2021-07-17] MEDS ORDERED: SULF500T8 PO (09:43)
[2021-07-17] MEDS ORDERED: MECL-160 PO (09:43)
[2021-07-17] MEDS ORDERED: METO75TA PO (09:43)
[2021-07-17] MEDS ORDERED: LEVO25CA4 PO (09:43)
[2021-07-17] MEDS ORDERED: CETI-89 PO (09:43)
[2021-07-17] MEDS ORDERED: ENAL20TA18 PO (09:43)
[2021-07-17] MEDS ORDERED: SERT-439 PO (09:43)
[2021-07-17] MEDS ORDERED: NITROGLYCERIN 0.4 MG SL TAB SL PRN (10:00)
[2021-07-17] MEDS ORDERED: LACTULOSE 20 GM/30 ML UDCUP PO PRN (10:00)
[2021-07-17] MEDS ORDERED: ONDANSETRON 4MG INJ IV PRN (10:00)
[2021-07-17] MEDS ORDERED: HYDRALAZINE 20MG/ML VIAL IV PRN (10:00)
[2021-07-17] MEDS ORDERED: ACETAMINOPHEN 325 MG TAB PO PRN (10:00)
[2021-07-17 10:17] LABS: % IRON SATURATION 10.5 % (22-44)
[2021-07-17 10:18] LABS: HEMOGLOBIN A1C 10.5 % (4.0-6.0)
[2021-07-17 10:21] LABS: CHOLESTEROL 141 mg/dL (<200); HDL CHOLESTEROL 51 mg/dL (35-85); LDL DIRECT 71 mg/dL (0-99); TRIGLYCERIDES 127 mg/dL (30-200)
[2021-07-17 10:28] LABS: APPEARANCE,URINE Clear (CLEAR); BILIRUBIN,URINE Negative (NEGATIVE); COLOR,URINE Yellow (YELLOW); GLUCOSE, URINE (UA) Negative (NEGATIVE); KETONES,URINE Negative (NEGATIVE); LEUKOCYTE ESTERASE ,URINE Negative (NEGATIVE); NITRATE,URINE Negative (NEGATIVE); OCCULT BLOOD,URINE Trace (NEGATIVE); PROTEIN,URINE 300 mg/dL (NEGATIVE); UROBILINOGEN,URINE 0.2 mg/dL (0.2-1.0)
[2021-07-17 10:41] LABS: BACTERIA,URINE Moderate /HPF (None Seen); RBC,URINE 0-1 /HPF (0-1); SQUAMOUS EPITHELIAL CELL,UR Few /HPF (0-2)
[2021-07-17] MEDS: FUROSEMIDE 100MG VIAL IV SCH (10:51)
[2021-07-17] MEDS: FAMOTIDINE 20MG TAB PO SCH (10:55)
[2021-07-17] MEDS ORDERED: GLUCAGON 1MG KIT 1 MG ML IM PRN (11:00)
[2021-07-17] MEDS ORDERED: DEXTROSE 50%-WATER 50 ML DISP.SYRIN IV PRN (11:00)
[2021-07-17] MEDS: INSULIN HUMULIN R 100 UNIT/ML 3ML SQ SCH ×5 (11:30→21:00)
[2021-07-17 12:00] VITALS: BP 127/44
[2021-07-17 18:00] VITALS: BP 141/43
[2021-07-17] MEDS: FUROSEMIDE 40MG VIAL IV SCH (19:38)
[2021-07-17] MEDS ORDERED: INSULIN GLARGINE 100 UNITS/ML 10 ML VIAL SQ SCH (21:00)
[2021-07-17 21:05] VITALS: BP 153/60
[2021-07-18] VITALS (7 sets, daily range): BP systolic 137–185; BP diastolic 48–69
[2021-07-18 04:03] LABS: ABG BASE EXCESS 3.6 mmol/L (-2.0-3.0); ABG HCO3 27.2 mmol/L (21.0-28.0); ABG OXYGEN SATURATION 95.6 % (95.0-99.0); ABG PCO2 38 mmHg (32-45)
[2021-07-18] MEDS: FUROSEMIDE 40MG VIAL IV SCH (05:07)
[2021-07-18 06:50] LABS: BASOPHILS % (AUTO) 0.4 % (0.0-5.0); EOSINOPHILS % (AUTO) 0.6 % (0.0-8.0); HEMATOCRIT 29.4 % (36-48); LYMPHOCYTES % (AUTO) 11.7 % (21.0-51.0); MEAN CORPUSCULAR HEMOGLOBIN 27.5 pg (27.0-33.0); MEAN CORPUSCULAR VOLUME 88.8 fL (79-99); MONOCYTES % (AUTO) 8.5 % (3.0-13.0); NEUTROPHILS % (AUTO) 78.2 % (40.0-77.0); PLATELET COUNT (AUTO) 247 K/uL (130-400); RED BLOOD CELL COUNT(AUTO) 3.31 MIL/uL (4.00-5.50); RED CELL DISTRIBUTION WIDTH 13.2 % (11.0-15.5)
[2021-07-18] MEDS: INSULIN HUMULIN R 100 UNIT/ML 3ML SQ SCH ×7 (06:57→20:15)
[2021-07-18 07:00] LABS: CREATININE 1.2 mg/dL (0.5-1.5); MAGNESIUM 2.2 mg/dL (1.80-2.40); POTASSIUM 4.6 mmol/L (3.5-5.1)
[2021-07-18] MEDS ORDERED: LORATADINE 10 MG TABLET PO PRN (08:00)
[2021-07-18] MEDS: FUROSEMIDE 100MG VIAL IV SCH (08:02)
[2021-07-18] MEDS ORDERED: COMPOUND IV MISC 1 EACH IVSOLN MISC PRN (08:30)
[2021-07-18] MEDS: IRON SUCROSE COMPLEX 300 MG in 0.9%NACL 50ML 50 ML IV SCH ×2 (09:56→10:06)
[2021-07-18] MEDS: SULFASALAZINE 500 MG TAB.DR PO SCH ×2 (09:56→21:00)
[2021-07-18] MEDS: METOPROLOL TARTRATE 50 MG TAB PO SCH ×2 (09:57→20:06)
[2021-07-18] MEDS: CETIRIZINE HCL 5 MG TABLET PO SCH (09:57)
[2021-07-18] MEDS: ENOXAPARIN SODIUM 30 MG/0.3 ML SQ SCH (09:58)
[2021-07-18] MEDS: SERTRALINE HCL 50 MG TABLET PO SCH (10:01)
[2021-07-18] MEDS: FAMOTIDINE 20MG TAB PO SCH (10:01)
[2021-07-18] MEDS: ASPIRIN 81 MG EC TAB PO SCH (10:04)
[2021-07-18] MEDS: FUROSEMIDE 20MG VIAL IV SCH ×2 (11:05→17:45)
[2021-07-18] MEDS ORDERED: AMLODIPINE 5 MG TAB PO ONE (11:30)
[2021-07-18] MEDS: AMLODIPINE 5 MG TAB PO SCH (15:16)
[2021-07-18] MEDS: ATORVASTATIN 40 MG TABLET PO SCH (20:06)
[2021-07-18] MEDS: INSULIN GLARGINE 100 UNITS/ML 10 ML VIAL SQ SCH (20:16)
[2021-07-19] VITALS (7 sets, daily range): BP systolic 133–169; BP diastolic 46–62
[2021-07-19] MEDS: FUROSEMIDE 20MG VIAL IV SCH (02:59)
[2021-07-19 05:30] LABS: HEMATOCRIT 29.6 % (36-48); MEAN CORPUSCULAR HEMOGLOBIN 28.2 pg (27.0-33.0); MEAN CORPUSCULAR HGB CONC 32.8 g/dL (32.0-36.0); RED BLOOD CELL COUNT(AUTO) 3.44 MIL/uL (4.00-5.50); RED CELL DISTRIBUTION WIDTH 13.3 % (11.0-15.5); RETICULOCYTE % (AUTO) 2.01 % (0.42-2.23); WHITE BLOOD COUNT (AUTO) 9.5 K/uL (4.8-10.8)
[2021-07-19 05:47] LABS: % IRON SATURATION 10.3 % (22-44)
[2021-07-19 06:04] LABS: CREATININE 1.2 mg/dL (0.5-1.5); MAGNESIUM 1.9 mg/dL (1.80-2.40); POTASSIUM 4.3 mmol/L (3.5-5.1)
[2021-07-19 06:15] LABS: THYROID STIMULATING HORMONE 6.87 uIU/mL (0.36-3.74)
[2021-07-19] MEDS: INSULIN HUMULIN R 100 UNIT/ML 3ML SQ SCH ×7 (06:34→21:00)
[2021-07-19] MEDS: ASPIRIN 81 MG EC TAB PO SCH (07:57)
[2021-07-19] MEDS: METOPROLOL TARTRATE 50 MG TAB PO SCH ×2 (07:57→20:58)
[2021-07-19] MEDS: SERTRALINE HCL 50 MG TABLET PO SCH (07:58)
[2021-07-19] MEDS: CETIRIZINE HCL 5 MG TABLET PO SCH (07:58)
[2021-07-19] MEDS: AMLODIPINE 5 MG TAB PO SCH ×2 (07:58→09:26)
[2021-07-19] MEDS: ENOXAPARIN SODIUM 30 MG/0.3 ML SQ SCH (07:58)
[2021-07-19] MEDS: FAMOTIDINE 20MG TAB PO SCH (07:58)
[2021-07-19] MEDS: IRON SUCROSE COMPLEX 300 MG in 0.9%NACL 50ML 50 ML IV SCH (07:59)
[2021-07-19] MEDS: SULFASALAZINE 500 MG TAB.DR PO SCH ×2 (09:26→20:58)
[2021-07-19] MEDS: ENALAPRIL MALEATE 10 MG TABLET PO SCH (15:30)
[2021-07-19] MEDS: ATORVASTATIN 40 MG TABLET PO SCH (20:58)
[2021-07-19] MEDS: INSULIN GLARGINE 100 UNITS/ML 10 ML VIAL SQ SCH (21:05)
[2021-07-20 04:35] VITALS: BP 130/45
[2021-07-20] MEDS: INSULIN HUMULIN R 100 UNIT/ML 3ML SQ SCH ×4 (06:26→12:02)
[2021-07-20 06:40] LABS: BASOPHILS % (AUTO) 0.7 % (0.0-5.0); HEMATOCRIT 28.7 % (36-48); LYMPHOCYTES % (AUTO) 16.9 % (21.0-51.0); MEAN CORPUSCULAR HGB CONC 32.1 g/dL (32.0-36.0); MEAN CORPUSCULAR VOLUME 87.5 fL (79-99); MONOCYTES % (AUTO) 12.2 % (3.0-13.0); NEUTROPHILS % (AUTO) 66.9 % (40.0-77.0); PLATELET COUNT (AUTO) 293 K/uL (130-400); RED BLOOD CELL COUNT(AUTO) 3.28 MIL/uL (4.00-5.50); RED CELL DISTRIBUTION WIDTH 13.3 % (11.0-15.5); WHITE BLOOD COUNT (AUTO) 7.6 K/uL (4.8-10.8)
[2021-07-20 06:50] LABS: CREATININE 1.1 mg/dL (0.5-1.5); POTASSIUM 4.1 mmol/L (3.5-5.1)
[2021-07-20] MEDS ORDERED: ENALAPRIL MALEATE 5 MG TAB ONE (08:07)
[2021-07-20] MEDS: ASPIRIN 81 MG EC TAB PO SCH (08:28)
[2021-07-20] MEDS: ENALAPRIL MALEATE 10 MG TABLET PO SCH (08:28)
[2021-07-20] MEDS: CETIRIZINE HCL 5 MG TABLET PO SCH (08:29)
[2021-07-20] MEDS: ENOXAPARIN SODIUM 30 MG/0.3 ML SQ SCH (08:29)
[2021-07-20] MEDS: SERTRALINE HCL 50 MG TABLET PO SCH (08:30)
[2021-07-20] MEDS: FAMOTIDINE 20MG TAB PO SCH (08:30)
[2021-07-20] MEDS: METOPROLOL TARTRATE 50 MG TAB PO SCH (08:30)
[2021-07-20] MEDS: AMLODIPINE 5 MG TAB PO SCH (08:30)
[2021-07-20] MEDS: IRON SUCROSE COMPLEX 300 MG in 0.9%NACL 50ML 50 ML IV SCH (08:42)
[2021-07-20] MEDS: SULFASALAZINE 500 MG TAB.DR PO SCH (08:43)
[2021-07-20] MEDS ORDERED: FUROSEMIDE 40 MG TABLET PO SCH (09:00)
[2021-07-20 09:19] VITALS: BP 156/57
[2021-07-20 12:27] VITALS: BP 124/46
[2021-07-20] MEDS ORDERED: AEC81 PO (16:20)
[2021-07-20] MEDS ORDERED: ENAL10TA18 PO (16:20)
[2021-07-20] MEDS ORDERED: FURO40TA7 PO (16:20)
[2021-07-20 16:49] VITALS: BP 144/55
== END 2021-07-20 17:35 | disposition home or self-care (01) | DRG 194 ==
LOC: EDH 08:03 → OBSVTOIN 08:04 → INTOOBSV 08:04 → EDHIP 08:04 → 3BH 07-18 01:06
PROVIDERS: ADMIT Internal Medicine; ATTEND Internal Medicine
DX: I11.0 Hypertensive heart disease with heart failure (principal); E66.01 Morbid (severe) obesity due to excess calories; E11.9 Type 2 diabetes mellitus without complications; E78.5 Hyperlipidemia, unspecified; D64.9 Anemia, unspecified; E78.00 Pure hypercholesterolemia, unspecified; I50.33 Acute on chronic diastolic (congestive) heart failure; G47.33 Obstructive sleep apnea (adult) (pediatric); J45.909 Unspecified asthma, uncomplicated; R09.02 Hypoxemia; Z20.822 Contact with and (suspected) exposure to COVID-19; I25.10 Atherosclerotic heart disease of native coronary artery without angina pectoris; L40.9 Psoriasis, unspecified; M06.9 Rheumatoid arthritis, unspecified; Z68.43 Body mass index [BMI] 50.0-59.9, adult; Z90.710 Acquired absence of both cervix and uterus; Z79.4 Long term (current) use of insulin; Z83.3 Family history of diabetes mellitus; Z80.9 Family history of malignant neoplasm, unspecified; Z82.49 Family history of ischemic heart disease and other diseases of the circulatory system
CPT/HCPCS: 36415; 36600; 71045; 80048; 80061; 81001; 82040; 82550; 82607; 82728; 82746; 82803; 82948; 83036; 83540; 83550; 83735; 83874; 83880; 84443; 84484; 85025; 85027; 85045; 87088; 87635; 87804; 87880; 93005; 93306; 93356; 93970; C9803; G0378; J0360; J1650; J1756; J1815; J1940

== ENCOUNTER 2022-05-10 10:44 | Inpatient (IN) | payer MEDICAID ==
[2022-05-10] VITALS (18 sets, daily range): BP systolic 76–192; BP diastolic 42–107
[~2022-05-10] VITALS: Ht 149.9 cm; Wt 68.9 kg
[~2022-05-10 10:44] MED LIST changes: +AEC81 PO; +ATOR40TA69 PO; -ATOR40TA71 PO; +ENAL10TA18 PO; -ENAL20TA18 PO; -ESOM40CA PO; +FURO40TA7 PO; -IBUP-2070 PO; -ISOS60TA77 PO; +LEVO25CA4 PO; -METO25TA6 PO; -METO50TA18 PO; +METO75TA PO; -NITR0.4T50 SL; +SERT-439 PO; +SULF500T8 PO
[2022-05-10 11:17] LABS: BASOPHILS % (AUTO) 0.4 % (0.0-5.0); EOSINOPHILS % (AUTO) 2.6 % (0.0-8.0); MEAN CORPUSCULAR HEMOGLOBIN 27.3 pg (27.0-33.0); MEAN CORPUSCULAR HGB CONC 31.9 g/dL (32.0-36.0); MEAN CORPUSCULAR VOLUME 85.5 fL (79-99); MONOCYTES % (AUTO) 6.4 % (3.0-13.0); NEUTROPHILS % (AUTO) 79.6 % (40.0-77.0); PLATELET COUNT (AUTO) 161 K/uL (130-400); RED BLOOD CELL COUNT(AUTO) 4.33 MIL/uL (4.00-5.50); RED CELL DISTRIBUTION WIDTH 15.2 % (11.0-15.5); WHITE BLOOD COUNT (AUTO) 15.9 K/uL (4.8-10.8)
[2022-05-10] MEDS ORDERED: VANCOMYCIN 1G/250ML KIT 250 ML IV ONE (11:25)
[2022-05-10] MEDS: CEFEPIME HCL 2 GM VIAL IVP SCH (11:29)
[2022-05-10] MEDS ORDERED: VANCOMYCIN 1G VIAL IVPB ONE (11:30)
[2022-05-10 11:49] LABS: INR 0.93 (0.85-1.15)
[2022-05-10 11:50] LABS: ALBUMIN 2.3 g/dL (3.5-5.0); PARTIAL THROMBOPLASTIN TIME 23.1 SEC (26.3-35.5); POTASSIUM 4.4 mmol/L (3.5-5.1); TOTAL PROTEIN, SERUM 6.4 g/dL (6.0-8.3)
[2022-05-10] MEDS ORDERED: VANCOMYCIN PROTOCOL PER PHARMACY IV SCH (12:00)
[2022-05-10] MEDS ORDERED: HYDR-3421 PO (12:08)
[2022-05-10] MEDS ORDERED: DULO30CA52 PO (12:08)
[2022-05-10] MEDS ORDERED: MINO2.5T3 PO (12:08)
[2022-05-10] MEDS ORDERED: HYDR-4153 PO (12:08)
[2022-05-10] MEDS ORDERED: NIFE60TA81 PO (12:08)
[2022-05-10] MEDS ORDERED: TORS10TA18 PO (12:08)
[2022-05-10] MEDS ORDERED: LOSA100T58 PO (12:08)
[2022-05-10] MEDS ORDERED: PHARMACY COMMUNICATION MISC SCH (12:30)
[2022-05-10] MEDS ORDERED: HYDROXYZINE 25 MG TABLET PO PRN (13:00)
[2022-05-10] MEDS ORDERED: VANCOMYCIN 1G/250ML KIT 250 ML IV SCH (13:00)
[2022-05-10 13:28] LABS: APPEARANCE,URINE CLOUDY (CLEAR); BILIRUBIN,URINE NEGATIVE (NEGATIVE); COLOR,URINE YELLOW (YELLOW); GLUCOSE, URINE (UA) 250 mg/dL (NEGATIVE); KETONES,URINE NEGATIVE (NEGATIVE); LEUKOCYTE ESTERASE ,URINE MODERATE (NEGATIVE); NITRATE,URINE POSITIVE (NEGATIVE); OCCULT BLOOD,URINE MODERATE (NEGATIVE); PROTEIN,URINE >=300 mg/dL (NEGATIVE); UROBILINOGEN,URINE 0.2 mg/dL (0.2-1.0)
[2022-05-10] MEDS: ZOSYN 3.375GM+NS 50ML 50 ML IV SCH ×2 (13:28→23:59)
[2022-05-10 13:29] LABS: HEMOGLOBIN A1C 9.4 % (4.0-6.0)
[2022-05-10 14:20] LABS: BACTERIA,URINE Few /HPF (None Seen); SQUAMOUS EPITHELIAL CELL,UR Few /HPF (0-2); WBC,URINE 51-100 /HPF (0-1)
[2022-05-10] MEDS ORDERED: HEPARIN 5,000 UNIT VIAL IV SCH (15:30)
[2022-05-10] MEDS: HYDRALAZINE 25MG TABLET PO SCH (16:17)
[2022-05-10] MEDS: INSULIN HUMULIN R 100 UNIT/ML 3ML SQ SCH ×2 (16:17→20:36)
[2022-05-10] MEDS: MINOXIDIL 2.5 MG TAB PO SCH (20:37)
[2022-05-10] MEDS: INSULIN GLARGINE 100 UNITS/ML 10 ML VIAL SQ SCH (20:37)
[2022-05-10] MEDS: ACETAMINOPHEN 325 MG TAB PO PRN (21:38)
[2022-05-11 04:46] LABS: BASOPHILS % (AUTO) 0.5 % (0.0-5.0); EOSINOPHILS % (AUTO) 1.3 % (0.0-8.0); HEMATOCRIT 29.2 % (36-48); LYMPHOCYTES % (AUTO) 6.7 % (21.0-51.0); MEAN CORPUSCULAR HEMOGLOBIN 27.7 pg (27.0-33.0); MEAN CORPUSCULAR HGB CONC 31.8 g/dL (32.0-36.0); MEAN CORPUSCULAR VOLUME 86.9 fL (79-99); MONOCYTES % (AUTO) 6.1 % (3.0-13.0); NEUTROPHILS % (AUTO) 81.3 % (40.0-77.0); PLATELET COUNT (AUTO) 114 K/uL (130-400); RED BLOOD CELL COUNT(AUTO) 3.36 MIL/uL (4.00-5.50); RED CELL DISTRIBUTION WIDTH 15.5 % (11.0-15.5); WHITE BLOOD COUNT (AUTO) 21.2 K/uL (4.8-10.8)
[2022-05-11 05:01] VITALS: BP 119/50
[2022-05-11 05:17] LABS: ALBUMIN 1.7 g/dL (3.5-5.0); CREATININE 1.7 mg/dL (0.5-1.5); MAGNESIUM 1.6 mg/dL (1.80-2.40); PHOSPHORUS 3.4 mg/dL (2.5-4.9); POTASSIUM 4.1 mmol/L (3.5-5.1); TOTAL PROTEIN, SERUM 5.1 g/dL (6.0-8.3)
[2022-05-11] MEDS: INSULIN HUMULIN R 100 UNIT/ML 3ML SQ SCH ×4 (06:34→21:00)
[2022-05-11 07:00] VITALS: BP 147/58
[2022-05-11] MEDS: HYDRALAZINE 25MG TABLET PO SCH ×3 (08:00→17:00)
[2022-05-11 08:42] LABS: HEPATITIS B SURFACE ANTIGEN Non-Reactive (Nonreactive)
[2022-05-11] MEDS: MINOXIDIL 2.5 MG TAB PO SCH ×2 (09:56→20:43)
[2022-05-11] MEDS: DULOXETINE HCL 30 MG CAP PO SCH (09:56)
[2022-05-11] MEDS: NIFEDIPINE ER 30 MG TAB PO SCH (09:56)
[2022-05-11] MEDS: Vitamin B Complex/Vit C/Folic Acid PO SCH (09:57)
[2022-05-11] MEDS ORDERED: LEVOFLOXACIN 500 MG/D5W 100 ML 100 ML IV SCH (10:00)
[2022-05-11] MEDS: MAGNESIUM 2GM PREMIX 50ML 50 ML IV PRN (11:55)
[2022-05-11] MEDS: ZOSYN 3.375GM+NS 50ML 50 ML IV SCH (11:56)
[2022-05-11] MEDS: CEFEPIME HCL 2 GM VIAL IVP SCH (11:56)
[2022-05-11 12:11] VITALS: BP 119/38
[2022-05-11] MEDS ORDERED: LIDOCAINE HCL 1% MDV 50ML VIAL ONE (14:52)
[2022-05-11 16:10] VITALS: BP 150/65
[2022-05-11 20:00] VITALS: BP 132/49
[2022-05-11] MEDS: INSULIN GLARGINE 100 UNITS/ML 10 ML VIAL SQ SCH (20:45)
[2022-05-12 00:12] VITALS: BP 141/48
[2022-05-12] MEDS: ZOSYN 3.375GM+NS 50ML 50 ML IV SCH ×3 (00:30→12:28)
[2022-05-12 04:01] VITALS: BP_SYST 123; BP_SYST 152; BP_DIAS 49; BP_DIAS 55
[2022-05-12] MEDS: INSULIN HUMULIN R 100 UNIT/ML 3ML SQ SCH ×4 (06:05→20:51)
[2022-05-12] MEDS: MAGNESIUM 2GM PREMIX 50ML 50 ML IV PRN (06:08)
[2022-05-12 07:59] VITALS: BP 118/52
[2022-05-12] MEDS: DULOXETINE HCL 30 MG CAP PO SCH (09:10)
[2022-05-12] MEDS: NIFEDIPINE ER 30 MG TAB PO SCH (09:10)
[2022-05-12] MEDS: Vitamin B Complex/Vit C/Folic Acid PO SCH (09:10)
[2022-05-12] MEDS: HYDRALAZINE 25MG TABLET PO SCH ×3 (09:10→20:57)
[2022-05-12] MEDS: MINOXIDIL 2.5 MG TAB PO SCH ×2 (09:10→20:56)
[2022-05-12 09:46] LABS: MEAN CORPUSCULAR HEMOGLOBIN 27.4 pg (27.0-33.0); MEAN CORPUSCULAR HGB CONC 31.7 g/dL (32.0-36.0); MEAN CORPUSCULAR VOLUME 86.5 fL (79-99); RED BLOOD CELL COUNT(AUTO) 3.47 MIL/uL (4.00-5.50); RED CELL DISTRIBUTION WIDTH 15.8 % (11.0-15.5); WHITE BLOOD COUNT (AUTO) 16.1 K/uL (4.8-10.8)
[2022-05-12 09:55] LABS: CREATININE 2.5 mg/dL (0.5-1.5); POTASSIUM 4.2 mmol/L (3.5-5.1)
[2022-05-12 12:05] VITALS: BP 118/52
[2022-05-12 16:39] VITALS: BP 121/56
[2022-05-12 20:00] VITALS: BP 140/49
[2022-05-12] MEDS: INSULIN GLARGINE 100 UNITS/ML 10 ML VIAL SQ SCH (20:51)
[2022-05-13] VITALS: BP 144/52
[2022-05-13] MEDS: ZOSYN 3.375GM+NS 50ML 50 ML IV SCH ×3 (01:38→23:50)
[2022-05-13] MEDS: ACETAMINOPHEN 325 MG TAB PO PRN (02:06)
[2022-05-13 03:56] LABS: BASOPHILS % (AUTO) 0.4 % (0.0-5.0); EOSINOPHILS % (AUTO) 1.6 % (0.0-8.0); HEMATOCRIT 30.2 % (36-48); MEAN CORPUSCULAR HEMOGLOBIN 27.1 pg (27.0-33.0); MEAN CORPUSCULAR HGB CONC 32.1 g/dL (32.0-36.0); MEAN CORPUSCULAR VOLUME 84.4 fL (79-99); MONOCYTES % (AUTO) 5.8 % (3.0-13.0); NEUTROPHILS % (AUTO) 84.2 % (40.0-77.0); PLATELET COUNT (AUTO) 183 K/uL (130-400); RED BLOOD CELL COUNT(AUTO) 3.58 MIL/uL (4.00-5.50); RED CELL DISTRIBUTION WIDTH 15.2 % (11.0-15.5); WHITE BLOOD COUNT (AUTO) 14.4 K/uL (4.8-10.8)
[2022-05-13 04:09] LABS: ALBUMIN 1.9 g/dL (3.5-5.0); CREATININE 2.6 mg/dL (0.5-1.5); MAGNESIUM 2.4 mg/dL (1.80-2.40); PHOSPHORUS 4.8 mg/dL (2.5-4.9); POTASSIUM 3.9 mmol/L (3.5-5.1); TOTAL PROTEIN, SERUM 5.6 g/dL (6.0-8.3)
[2022-05-13 05:47] VITALS: BP 132/45
[2022-05-13] MEDS: INSULIN HUMULIN R 100 UNIT/ML 3ML SQ SCH ×4 (06:03→21:00)
[2022-05-13] MEDS: HYDRALAZINE 25MG TABLET PO SCH ×3 (06:05→21:32)
[2022-05-13 08:11] VITALS: BP 152/55
[2022-05-13] MEDS: MINOXIDIL 2.5 MG TAB PO SCH ×2 (09:59→21:32)
[2022-05-13] MEDS: NIFEDIPINE ER 30 MG TAB PO SCH (09:59)
[2022-05-13] MEDS: DULOXETINE HCL 30 MG CAP PO SCH (09:59)
[2022-05-13] MEDS: Vitamin B Complex/Vit C/Folic Acid PO SCH (09:59)
[2022-05-13 11:18] VITALS: BP 148/56
[2022-05-13 16:53] VITALS: BP 149/50
[2022-05-13 20:00] VITALS: BP 146/51
[2022-05-13] MEDS: INSULIN GLARGINE 100 UNITS/ML 10 ML VIAL SQ SCH (21:32)
[2022-05-14] VITALS (22 sets, daily range): BP systolic 136–194; BP diastolic 45–84
[2022-05-14 03:59] LABS: BASOPHILS % (AUTO) 0.6 % (0.0-5.0); EOSINOPHILS % (AUTO) 3.7 % (0.0-8.0); HEMATOCRIT 28.9 % (36-48); LYMPHOCYTES % (AUTO) 10.8 % (21.0-51.0); MEAN CORPUSCULAR HEMOGLOBIN 27.1 pg (27.0-33.0); MEAN CORPUSCULAR HGB CONC 31.8 g/dL (32.0-36.0); MONOCYTES % (AUTO) 6.7 % (3.0-13.0); NEUTROPHILS % (AUTO) 76.6 % (40.0-77.0); PLATELET COUNT (AUTO) 226 K/uL (130-400); RED CELL DISTRIBUTION WIDTH 15.1 % (11.0-15.5); WHITE BLOOD COUNT (AUTO) 11.5 K/uL (4.8-10.8)
[2022-05-14 04:12] LABS: INR 1.04 (0.85-1.15); PROTHROMBIN TIME 11.3 SEC (9.6-11.6)
[2022-05-14 04:16] LABS: CREATININE 2.5 mg/dL (0.5-1.5); PHOSPHORUS 5.3 mg/dL (2.5-4.9); POTASSIUM 3.9 mmol/L (3.5-5.1)
[2022-05-14] MEDS: HYDRALAZINE 25MG TABLET PO SCH ×3 (05:19→20:33)
[2022-05-14] MEDS: INSULIN HUMULIN R 100 UNIT/ML 3ML SQ SCH ×4 (06:30→20:28)
[2022-05-14] MEDS: Vitamin B Complex/Vit C/Folic Acid PO SCH (08:26)
[2022-05-14] MEDS: DULOXETINE HCL 30 MG CAP PO SCH (08:26)
[2022-05-14] MEDS: MINOXIDIL 2.5 MG TAB PO SCH ×2 (08:26→20:32)
[2022-05-14] MEDS: NIFEDIPINE ER 30 MG TAB PO SCH (08:26)
[2022-05-14] MEDS: ZOSYN 3.375GM+NS 50ML 50 ML IV SCH (12:52)
[2022-05-14] MEDS ORDERED: HEPARIN 1,000 UNIT VIAL ONE (15:03)
[2022-05-14] MEDS ORDERED: LIDOCAINE HCL 1% MDV 50ML VIAL ONE (15:03)
[2022-05-14] MEDS: INSULIN GLARGINE 100 UNITS/ML 10 ML VIAL SQ SCH (20:28)
[2022-05-14] MEDS: ACETAMINOPHEN 325 MG TAB PO PRN (20:46)
[2022-05-15] MEDS: ZOSYN 3.375GM+NS 50ML 50 ML IV SCH ×2 (00:31→13:29)
[2022-05-15 05:10] VITALS: BP 154/62
[2022-05-15] MEDS: HYDRALAZINE 25MG TABLET PO SCH ×2 (06:25→13:29)
[2022-05-15] MEDS: INSULIN HUMULIN R 100 UNIT/ML 3ML SQ SCH ×2 (06:41→11:30)
[2022-05-15 07:38] VITALS: BP 147/74
[2022-05-15] MEDS: Vitamin B Complex/Vit C/Folic Acid PO SCH (10:09)
[2022-05-15] MEDS: MINOXIDIL 2.5 MG TAB PO SCH (10:09)
[2022-05-15] MEDS: DULOXETINE HCL 30 MG CAP PO SCH (10:10)
[2022-05-15] MEDS: NIFEDIPINE ER 30 MG TAB PO SCH (10:10)
[2022-05-15 13:30] VITALS: BP 147/58
== END 2022-05-15 15:31 | disposition home or self-care (01) | DRG 466 ==
LOC: EDH 10:44 → EDHIP 10:45 → 4BH 14:20 → 4AH 14:40
PROVIDERS: ADMIT Internal Medicine; ATTEND Internal Medicine
PROC: 5A1D70Z Performance of Urinary Filtration, Intermittent, Less than 6 Hours Per Day (ICD-10-PCS; 2022-05-10)
PROC: 0JPV3XZ Removal of Tunneled Vascular Access Device from Upper Extremity Subcutaneous Tissue and Fascia, Percutaneous Approach (ICD-10-PCS; 2022-05-11)
PROC: 0JH63XZ Insertion of Tunneled Vascular Access Device into Chest Subcutaneous Tissue and Fascia, Percutaneous Approach (ICD-10-PCS; principal; 2022-05-14)
PROC: 02H633Z Insertion of Infusion Device into Right Atrium, Percutaneous Approach (ICD-10-PCS; 2022-05-14)
PROC: B548ZZA Ultrasonography of Superior Vena Cava, Guidance (ICD-10-PCS; 2022-05-14)
PROC: B5181ZA Fluoroscopy of Superior Vena Cava using Low Osmolar Contrast, Guidance (ICD-10-PCS; 2022-05-14)
PROC: 5A1D70Z Performance of Urinary Filtration, Intermittent, Less than 6 Hours Per Day (ICD-10-PCS; 2022-05-14)
DX: T82.7XXA Infection and inflammatory reaction due to other cardiac and vascular devices, implants and grafts, initial encounter (principal); I12.0 Hypertensive chronic kidney disease with stage 5 chronic kidney disease or end stage renal disease; A41.50 Gram-negative sepsis, unspecified; E43 Unspecified severe protein-calorie malnutrition; N18.6 End stage renal disease; D63.1 Anemia in chronic kidney disease; R65.20 Severe sepsis without septic shock; E11.22 Type 2 diabetes mellitus with diabetic chronic kidney disease; B96.89 Other specified bacterial agents as the cause of diseases classified elsewhere; E03.9 Hypothyroidism, unspecified; L40.9 Psoriasis, unspecified; E87.70 Fluid overload, unspecified; E11.51 Type 2 diabetes mellitus with diabetic peripheral angiopathy without gangrene; E11.65 Type 2 diabetes mellitus with hyperglycemia; E66.9 Obesity, unspecified; Z68.32 Body mass index [BMI] 32.0-32.9, adult; M19.90 Unspecified osteoarthritis, unspecified site; Z82.49 Family history of ischemic heart disease and other diseases of the circulatory system; E66.01 Morbid (severe) obesity due to excess calories; F32.A Depression, unspecified; Z68.30 Body mass index [BMI] 30.0-30.9, adult; E78.00 Pure hypercholesterolemia, unspecified; Z99.2 Dependence on renal dialysis; Y84.1 Kidney dialysis as the cause of abnormal reaction of the patient, or of later complication, without mention of misadventure at the time of the procedure; Y92.89 Other specified places as the place of occurrence of the external cause
CPT/HCPCS: 36415; 36558; 36589; 71045; 77001; 80048; 80053; 81001; 82306; 82550; 82948; 83036; 83605; 83735; 84100; 84132; 84145; 84484; 85025; 85027; 85610; 85651; 85730; 86140; 86704; 86706; 87040; 87070; 87077; 87088; 87186; 87340; 87635; 90935; 93005; 93306; 99291; C1750; G0378; J0692; J1644; J1956; J2543; J3370; J3475; J3490

== ENCOUNTER 2022-11-30 08:17 | Emergency (ER) | payer MEDICAID ==
[~2022-11-30] VITALS: Ht 149.9 cm; Wt 64.0 kg
[~2022-11-30 08:17] MED LIST changes: +CLOB30CR4 TP; +DULO30CA2 PO; +DULO30CA52 PO; +Folic Acid/Vitamin B Comp W-C PO; +GABA300C PO; +HYDR-3421 PO; +HYDR-4153 PO; +LACT10SO9 PO; +LEVO50CA4 PO; +LOSA100T58 PO; +METO100T14 PO; +METO5TAB7 PO; +MINO2.5 PO; +MINO2.5T3 PO; +NIFE-39 PO; +NIFE60TA81 PO; +NIFE90TA65 PO; +ONDA4TAB10 PO; +OSEL75 PO; +PRED20TA3 PO; +RISA150P SQ; +ROSU10TA28 PO; +TORS10TA18 PO
[2022-11-30] MEDS ORDERED: ONDANSETRON 4MG INJ IVP ONE (08:30)
[2022-11-30] MEDS ORDERED: DiphenhydrAMINE HCL 50 MG/ML VIAL IV ONE (08:30)
[2022-11-30] MEDS ORDERED: FAMOTIDINE 20MG VIAL IV ONE (08:30)
[2022-11-30 09:05] LABS: CREATININE 2.4 mg/dL (0.5-1.5); POTASSIUM 4.3 mmol/L (3.5-5.1)
[2022-11-30 09:06] LABS: BASOPHILS % (AUTO) 0.4 % (0.0-5.0); EOSINOPHILS % (AUTO) 0.4 % (0.0-8.0); LYMPHOCYTES % (AUTO) 5.7 % (21.0-51.0); MEAN CORPUSCULAR HEMOGLOBIN 29.4 pg (27.0-33.0); MEAN CORPUSCULAR VOLUME 89.1 fL (79-99); NEUTROPHILS % (AUTO) 87.7 % (40.0-77.0); PLATELET COUNT (AUTO) 185 K/uL (130-400); RED BLOOD CELL COUNT(AUTO) 4.49 MIL/uL (4.00-5.50); RED CELL DISTRIBUTION WIDTH 13.3 % (11.0-15.5); WHITE BLOOD COUNT (AUTO) 22.7 K/uL (4.8-10.8)
[2022-11-30 09:09] LABS: ALBUMIN 2.8 g/dL (3.5-5.0); TOTAL PROTEIN, SERUM 6.7 g/dL (6.0-8.3)
[2022-11-30] MEDS ORDERED: HYDR50CA PO (10:07)
[2022-11-30 10:45] VITALS: BP 165/69
== END 2022-11-30 10:45 | disposition home or self-care (01) ==
LOC: EDH 08:17
DX: F41.9 Anxiety disorder, unspecified (principal); E11.22 Type 2 diabetes mellitus with diabetic chronic kidney disease; E78.00 Pure hypercholesterolemia, unspecified; I12.0 Hypertensive chronic kidney disease with stage 5 chronic kidney disease or end stage renal disease; N18.6 End stage renal disease; J45.909 Unspecified asthma, uncomplicated; E66.01 Morbid (severe) obesity due to excess calories; Z79.4 Long term (current) use of insulin; M19.90 Unspecified osteoarthritis, unspecified site; Z99.2 Dependence on renal dialysis; Z79.82 Long term (current) use of aspirin; Z79.899 Other long term (current) drug therapy
CPT/HCPCS: 99285; 96374; 71045; 96375; 84484; 80053; 83690; 85025; 36415; 93005; J1200; S0028; J3490

== ENCOUNTER 2022-12-23 09:24 | Day surgery (SDC) | payer MEDICAID ==
[2022-12-18 10:28] LABS: HEMATOCRIT 39.6 % (36-48); MEAN CORPUSCULAR HGB CONC 32.3 g/dL (32.0-36.0); MEAN CORPUSCULAR VOLUME 89.8 fL (79-99); RED BLOOD CELL COUNT(AUTO) 4.41 MIL/uL (4.00-5.50); RED CELL DISTRIBUTION WIDTH 12.8 % (11.0-15.5); WHITE BLOOD COUNT (AUTO) 6.4 K/uL (4.8-10.8)
[2022-12-18 10:44] LABS: INR 0.97 (0.85-1.15); PROTHROMBIN TIME 10.6 SEC (9.6-11.6)
[2022-12-18 10:45] LABS: PARTIAL THROMBOPLASTIN TIME 27.3 SEC (26.3-35.5)
[2022-12-18 10:52] LABS: CREATININE 2.3 mg/dL (0.5-1.5); POTASSIUM 4.3 mmol/L (3.5-5.1)
[2022-12-18 11:11] VITALS: BP 186/84
[2022-12-23] VITALS (22 sets, daily range): BP systolic 148–254; BP diastolic 51–99
[~2022-12-23] VITALS: Ht 142.2 cm; Wt 63.3 kg
[~2022-12-23 09:24] MED LIST changes: -AEC81 PO; -AMLO-258 PO; -ATOR40TA69 PO; +BUPIVACAINE/PF 0.5% 30ML VIAL ONE; +CEFAZOLIN SODIUM 1 GM VIAL ONE; +CEFAZOLIN SODIUM 2 GM VIAL IVPB SCH; -CLOB30CR4 TP; -DULO30CA2 PO; -DULO30CA52 PO; -ENAL10TA18 PO; +FURO20TA4 PO; -FURO40TA5 PO; -FURO40TA7 PO; -Folic Acid/Vitamin B Comp W-C PO; -GABA-531 PO; -GABA300C PO; -HYDR-3421 PO; -INSU100I35 SQ; +INSU100V12 SQ; +ISOS30TA92 PO; -LACT10SO9 PO; -LEVO25CA4 PO; +LIDOCAINE HCL 1% 20 ML VIAL ONE; -LORA10TA7 PO; -LOSA100T58 PO; +METO-409 PO; -METO100T14 PO; -METO75TA PO; -MINO2.5 PO; -MINO2.5T3 PO; -NIFE-39 PO; -NIFE90TA65 PO; -OSEL75 PO; -PRED20TA3 PO; -RISA150P SQ; -ROSU10TA28 PO; -SERT-439 PO; -SULF500T8 PO; -TORS10TA18 PO
[2022-12-23] MEDS ORDERED: 0.9% NACL 500ML IV.SOLN 500 ML IV ONE (10:06)
[2022-12-23 10:08] LABS: CREATININE 2.2 mg/dL (0.5-1.5); POTASSIUM 5.3 mmol/L (3.5-5.1)
[2022-12-23] MEDS ORDERED: HYDRALAZINE 20MG/ML VIAL ONE (10:44)
[2022-12-23] MEDS ORDERED: CEFAZOLIN SODIUM 2 GM VIAL IVPB ONE (11:45)
[2022-12-23] MEDS ORDERED: GLYCOPYRROLATE 1 MG/5 ML SYRINGE ONE (11:47)
[2022-12-23] MEDS ORDERED: FENTANYL CITRATE PF 50 MCG/1 ML 2ML VIAL ONE (11:47)
[2022-12-23] MEDS ORDERED: ROCURONIUM 10MG/1ML SYR 10 MG/ML ML ONE (11:47)
[2022-12-23] MEDS ORDERED: LIDOCAINE PF 100MG/5ML (2%) SYRINGE 5ML ONE (11:47)
[2022-12-23] MEDS ORDERED: PROPOFOL 10 MG/ML 20ML VIAL IV ONE (11:47)
[2022-12-23] MEDS ORDERED: HYDRALAZINE 25MG TABLET PO SCH (12:00)
[2022-12-23] MEDS ORDERED: NIFEDIPINE ER 30 MG TAB PO SCH (12:00)
[2022-12-23] MEDS ORDERED: HEPARIN 10,000 UNIT/10ML (1,000 UNIT/ML) VIAL ONE ×2 (12:16→12:47)
[2022-12-23] MEDS ORDERED: ONDANSETRON 4MG INJ ONE (12:38)
[2022-12-23] MEDS ORDERED: NEOSTIGMINE 5MG/5ML SYR IV ONE (12:48)
[2022-12-23] MEDS ORDERED: PROTAMINE SULFATE 10 MG/ML 5 ML VIAL ONE (13:10)
[2022-12-24] MEDS ORDERED: ISOSORBIDE MONO 30MG SR TAB PO SCH (09:00)
== END 2022-12-23 15:53 | disposition home or self-care (01) ==
LOC: DAH 09:24
PROVIDERS: ATTEND Thoracic Surgery (Cardiothoracic Vascular Surgery)
DX: E11.22 Type 2 diabetes mellitus with diabetic chronic kidney disease (principal); Z20.822 Contact with and (suspected) exposure to COVID-19; I12.0 Hypertensive chronic kidney disease with stage 5 chronic kidney disease or end stage renal disease; N18.6 End stage renal disease; J45.909 Unspecified asthma, uncomplicated; K21.9 Gastro-esophageal reflux disease without esophagitis; E03.9 Hypothyroidism, unspecified; I25.2 Old myocardial infarction; Z99.2 Dependence on renal dialysis; Z79.899 Other long term (current) drug therapy; Z79.01 Long term (current) use of anticoagulants; Z90.710 Acquired absence of both cervix and uterus; Z98.891 History of uterine scar from previous surgery
CPT/HCPCS: 80048 ×2; 85027; 85610; 85730; 86850 ×2; 86900 ×2; 86901 ×2; 87426; 36415 ×2; 71045; 93005; 36830; 82948 ×2; A6260; A4663 ×2; J7030; A4452; J7040; J3010; J0690 ×3; J3490 ×3; J2710; J2720; J0360; J1644 ×3; J2405; S0020; A6446; G0168; A4649 ×4; C1713 ×2; A4930 ×2; A4215; A4223; A4222; A4221; J2001; J2704

== ENCOUNTER 2023-01-20 10:58 | Inpatient (IN) | payer MEDICAID ==
[2023-01-20] VITALS (17 sets, daily range): BP systolic 117–188; BP diastolic 48–77
[~2023-01-20] VITALS: Ht 142.2 cm; Wt 62.1 kg
[~2023-01-20 10:58] MED LIST changes: -BUPIVACAINE/PF 0.5% 30ML VIAL ONE; -CEFAZOLIN SODIUM 1 GM VIAL ONE; -CEFAZOLIN SODIUM 2 GM VIAL IVPB SCH; -LIDOCAINE HCL 1% 20 ML VIAL ONE
[2023-01-20 12:13] LABS: BASOPHILS % (AUTO) 0.5 % (0.0-5.0); EOSINOPHILS % (AUTO) 3.4 % (0.0-8.0); HEMATOCRIT 35.9 % (36-48); LYMPHOCYTES % (AUTO) 19.2 % (21.0-51.0); MEAN CORPUSCULAR HEMOGLOBIN 29.4 pg (27.0-33.0); MEAN CORPUSCULAR VOLUME 91.8 fL (79-99); MONOCYTES % (AUTO) 9.3 % (3.0-13.0); NEUTROPHILS % (AUTO) 66.5 % (40.0-77.0); NUCLEATED RED BLOOD CELLS 0.4 % (0.0-0.19); PLATELET COUNT (AUTO) 227 K/uL (130-400); RED BLOOD CELL COUNT(AUTO) 3.91 MIL/uL (4.00-5.50); RED CELL DISTRIBUTION WIDTH 14.4 % (11.0-15.5); WHITE BLOOD COUNT (AUTO) 11.1 K/uL (4.8-10.8)
[2023-01-20 12:20] LABS: APPEARANCE,URINE CLEAR (CLEAR); BILIRUBIN,URINE NEGATIVE (NEGATIVE); COLOR,URINE LIGHT-YELLOW (YELLOW); GLUCOSE, URINE (UA) 300 mg/dL (NEGATIVE); KETONES,URINE NEGATIVE (NEGATIVE); LEUKOCYTE ESTERASE ,URINE NEGATIVE Leu/uL (NEGATIVE); NITRATE,URINE NEGATIVE (NEGATIVE); PROTEIN,URINE 600 mg/dL (NEGATIVE); UROBILINOGEN,URINE 0.2 mg/dL (0.2-1.0)
[2023-01-20 12:26] LABS: ALBUMIN 2.3 g/dL (3.5-5.0); CREATININE 2.2 mg/dL (0.5-1.5); POTASSIUM 4.3 mmol/L (3.5-5.1); TOTAL PROTEIN, SERUM 6.1 g/dL (6.0-8.3)
[2023-01-20] MEDS ORDERED: HYDRALAZINE 20MG/ML VIAL IV ONE (12:30)
[2023-01-20 12:37] LABS: MUCUS,URINE RARE LPF (None Seen); RBC,URINE 0-1 /HPF (0-1); SQUAMOUS EPITHELIAL CELL,UR MOD /HPF (0-2)
[2023-01-20] MEDS ORDERED: ACETAMINOPHEN 325 MG TAB PO PRN (14:00)
[2023-01-20] MEDS ORDERED: ONDANSETRON 4MG INJ IVP PRN (14:00)
[2023-01-20] MEDS: HEPARIN 5,000 UNIT VIAL SQ SCH ×2 (14:10→18:30)
[2023-01-20] MEDS ORDERED: INSLAN SQ (16:13)
[2023-01-20 16:34] LABS: BASOPHILS % (AUTO) 0.4 % (0.0-5.0); EOSINOPHILS % (AUTO) 3.3 % (0.0-8.0); HEMATOCRIT 34.3 % (36-48); LYMPHOCYTES % (AUTO) 22.2 % (21.0-51.0); MEAN CORPUSCULAR HEMOGLOBIN 29.6 pg (27.0-33.0); MEAN CORPUSCULAR HGB CONC 32.4 g/dL (32.0-36.0); MEAN CORPUSCULAR VOLUME 91.5 fL (79-99); MONOCYTES % (AUTO) 8.5 % (3.0-13.0); NEUTROPHILS % (AUTO) 64.7 % (40.0-77.0); NUCLEATED RED BLOOD CELLS 0.4 % (0.0-0.19); PLATELET COUNT (AUTO) 214 K/uL (130-400); POTASSIUM 3.9 mmol/L (3.5-5.1); RED BLOOD CELL COUNT(AUTO) 3.75 MIL/uL (4.00-5.50); RED CELL DISTRIBUTION WIDTH 14.6 % (11.0-15.5); WHITE BLOOD COUNT (AUTO) 11.6 K/uL (4.8-10.8)
[2023-01-20 16:40] LABS: ALBUMIN 2.1 g/dL (3.5-5.0); MAGNESIUM 2.2 mg/dL (1.80-2.40); TOTAL PROTEIN, SERUM 5.8 g/dL (6.0-8.3)
[2023-01-20 16:51] LABS: HEMOGLOBIN A1C 8.2 % (4.0-6.0)
[2023-01-20] MEDS ORDERED: HEPARIN 5,000 UNIT VIAL IV SCH (18:30)
[2023-01-20] MEDS ORDERED: ALTEPLASE 2MG VIAL 2 MG/VIAL VIAL IVCATH STA (19:52)
[2023-01-20] MEDS: INSULIN HUMULIN R 100 UNIT/ML 3ML SQ SCH (20:09)
[2023-01-21] VITALS (21 sets, daily range): BP systolic 138–188; BP diastolic 58–86
[2023-01-21 04:06] LABS: HEPATITIS B SURFACE ANTIGEN Non-Reactive (Nonreactive)
[2023-01-21 05:52] LABS: BASOPHILS % (AUTO) 0.4 % (0.0-5.0); EOSINOPHILS % (AUTO) 1.1 % (0.0-8.0); HEMATOCRIT 33.2 % (36-48); LYMPHOCYTES % (AUTO) 16.1 % (21.0-51.0); MEAN CORPUSCULAR HEMOGLOBIN 29.8 pg (27.0-33.0); MEAN CORPUSCULAR HGB CONC 33.1 g/dL (32.0-36.0); NEUTROPHILS % (AUTO) 73.6 % (40.0-77.0); PLATELET COUNT (AUTO) 146 K/uL (130-400); RED BLOOD CELL COUNT(AUTO) 3.69 MIL/uL (4.00-5.50); RED CELL DISTRIBUTION WIDTH 14.6 % (11.0-15.5); WHITE BLOOD COUNT (AUTO) 10.2 K/uL (4.8-10.8)
[2023-01-21 06:20] LABS: CREATININE 2.1 mg/dL (0.5-1.5); POTASSIUM 4.3 mmol/L (3.5-5.1); TOTAL PROTEIN, SERUM 5.7 g/dL (6.0-8.3)
[2023-01-21] MEDS: INSULIN HUMULIN R 100 UNIT/ML 3ML SQ SCH ×5 (06:32→20:45)
[2023-01-21] MEDS: ISOSORBIDE MONO 30MG SR TAB PO SCH (15:57)
[2023-01-21] MEDS: HEPARIN 5,000 UNIT VIAL SQ SCH (15:58)
[2023-01-21] MEDS: PHARMACY COMMUNICATION MISC SCH ×2 (19:30→23:30)
[2023-01-21] MEDS: FUROSEMIDE 20 MG TABLET PO SCH (20:58)
[2023-01-21] MEDS ORDERED: METOPROLOL SUCCINATE 50 MG TAB.SR.24H PO SCH (21:00)
[2023-01-22] VITALS (12 sets, daily range): BP systolic 120–193; BP diastolic 45–72
[2023-01-22] MEDS: HEPARIN 5,000 UNIT VIAL SQ SCH ×2 (02:11→15:07)
[2023-01-22] MEDS: FUROSEMIDE 20 MG TABLET PO SCH (06:04)
[2023-01-22] MEDS: INSULIN HUMULIN R 100 UNIT/ML 3ML SQ SCH ×3 (06:17→16:08)
[2023-01-22] MEDS ORDERED: LEVOTHYROXINE 50 MCG TABLET PO SCH (06:30)
[2023-01-22] MEDS: PHARMACY COMMUNICATION MISC SCH ×3 (07:30→15:07)
[2023-01-22] MEDS: ISOSORBIDE MONO 30MG SR TAB PO SCH (07:46)
[2023-01-22 07:58] LABS: CREATININE 2.4 mg/dL (0.5-1.5); POTASSIUM 3.9 mmol/L (3.5-5.1)
[2023-01-22 08:01] LABS: PROTHROMBIN TIME 10.9 SEC (9.6-11.6)
[2023-01-22 08:02] LABS: PARTIAL THROMBOPLASTIN TIME 25.6 SEC (26.3-35.5)
[2023-01-22] MEDS ORDERED: INSULIN GLARGINE 100 UNITS/ML 10 ML VIAL SQ SCH (09:00)
[2023-01-22] MEDS ORDERED: LIDOCAINE HCL 400MG/20ML VIAL ONE (10:28)
[2023-01-22] MEDS ORDERED: IOHEXOL-350 50ML VIAL IV ONE ×2 (10:28→11:09)
[2023-01-22] MEDS ORDERED: HYDRALAZINE 20MG/ML VIAL ONE (10:43)
[2023-01-22] MEDS ORDERED: FENTANYL CITRATE PF 50 MCG/1 ML 2ML VIAL ONE (10:44)
[2023-01-22] MEDS ORDERED: HEPARIN 10,000 UNIT/10ML (1,000 UNIT/ML) VIAL ONE (10:55)
== END 2023-01-22 17:35 | disposition home or self-care (01) | DRG 950 ==
LOC: EDH 10:58 → EDHIP 10:59 → 4BH 16:27
PROVIDERS: ADMIT Internal Medicine Infectious Disease; ATTEND Internal Medicine Infectious Disease
PROC: 03CY3ZZ Extirpation of Matter from Upper Artery, Percutaneous Approach (ICD-10-PCS; principal; 2023-01-22)
PROC: 037Y3ZZ Dilation of Upper Artery, Percutaneous Approach (ICD-10-PCS; 2023-01-22)
PROC: 3E03317 Introduction of Other Thrombolytic into Peripheral Vein, Percutaneous Approach (ICD-10-PCS; 2023-01-22)
PROC: B51N1ZA Fluoroscopy of Left Upper Extremity Veins using Low Osmolar Contrast, Guidance (ICD-10-PCS; 2023-01-22)
DX: J96.91 Respiratory failure, unspecified with hypoxia (principal); J81.0 Acute pulmonary edema; T82.510A Breakdown (mechanical) of surgically created arteriovenous fistula, initial encounter; I12.0 Hypertensive chronic kidney disease with stage 5 chronic kidney disease or end stage renal disease; E11.22 Type 2 diabetes mellitus with diabetic chronic kidney disease; D64.9 Anemia, unspecified; E03.9 Hypothyroidism, unspecified; E78.00 Pure hypercholesterolemia, unspecified; I16.1 Hypertensive emergency; N18.6 End stage renal disease; E87.70 Fluid overload, unspecified; J81.1 Chronic pulmonary edema; Y71.2 Prosthetic and other implants, materials and accessory cardiovascular devices associated with adverse incidents; E66.01 Morbid (severe) obesity due to excess calories; Z91.15 Patient's noncompliance with renal dialysis; Z99.2 Dependence on renal dialysis; Z82.49 Family history of ischemic heart disease and other diseases of the circulatory system; Z79.899 Other long term (current) drug therapy; Z68.30 Body mass index [BMI] 30.0-30.9, adult
CPT/HCPCS: 36415; 36905; 71045; 80048; 80053; 81001; 81025; 82948; 83036; 83735; 85025; 85610; 85730; 86704; 86706; 87340; 90935; 93005; C1725; C1757; C1769; C1894; G0378; J0360; J1644; J2997; J3010; J3490; Q9967

== ENCOUNTER → 2023-08-04 | Outpatient (CLI) | payer MEDICAID ==
[~2023-08-04] VITALS: Ht 142.2 cm; Wt 59.6 kg
[~2023-08-04] MED LIST changes: +BENZ-226 PO; +CYCL-309 PO; +DEXA4TAB PO; +DEXAMETHASONE SOD PHOSPHATE 10MG/ML 1ML VIAL ONE; +DULO30CA52 PO; +FURO40TA5 PO; +GABA600T10 PO; +HYDR-4154 PO; +INSLAN SQ; -INSU100V12 SQ; +LEVO100T4 PO; -LEVO50CA4 PO; +LEVO50TA11 PO; +LIDOCAINE PF 100MG/5ML (2%) SYRINGE 5ML ONE; +LOSA100T59 PO; -METO-409 PO; +METO100T14 PO; -NIFE60TA81 PO; +NIFE90TA72 PO; +ONDA-104 PO; +ONDANSETRON 4MG INJ ONE; +PANT40TA54 PO; +PROPOFOL 10 MG/ML 20ML VIAL IV ONE; +ROSU10TA28 PO; +SUCCINYLCHOLINE 200MG/10ML SYR ONE; +TRIA15CR48 TP
[2023-08-04 10:12] LABS: BASOPHILS # (AUTO) 0.08 K/uL (0.00-0.20); BASOPHILS % (AUTO) 1.2 % (0.0-5.0); EOSINOPHILS # (AUTO) 0.28 K/uL (0.00-0.70); EOSINOPHILS % (AUTO) 4.2 % (0.0-8.0); HEMATOCRIT 37.9 % (36-48); IMMATURE GRANULOCYTE ABSOLUTE 0.43 K/uL (0-1); LYMPHOCYTES # (AUTO) 1.5 K/uL (1.0-4.8); MEAN CORPUSCULAR HEMOGLOBIN 27.7 pg (27.0-33.0); MEAN CORPUSCULAR HGB CONC 31.4 g/dL (32.0-36.0); MEAN CORPUSCULAR VOLUME 88.1 fL (79-99); MONOCYTES % (AUTO) 15.1 % (3.0-13.0); NEUTROPHILS # (AUTO) 3.3 K/uL (1.8-7.7); NUCLEATED RED BLOOD CELLS 0.3 % (0.0-0.19); PLATELET COUNT (AUTO) 368 K/uL (130-400); RED CELL DISTRIBUTION WIDTH 14.9 % (11.0-15.5); WHITE BLOOD COUNT (AUTO) 6.6 K/uL (4.8-10.8)
[2023-08-04 10:24] VITALS: BP 191/68; PULSE 82; RESP 17
[2023-08-04 10:28] LABS: INR < 0.93 (0.85-1.15); PROTHROMBIN TIME 10.4 SEC (9.6-11.6)
[2023-08-04 10:30] LABS: PARTIAL THROMBOPLASTIN TIME 25.8 SEC (26.3-35.5)
[2023-08-04 10:32] LABS: ALBUMIN 2.7 g/dL (3.5-5.0); BILIRUBIN,TOTAL 0.2 mg/dL (0.2-1.0); CREATININE 2.3 mg/dL (0.5-1.5); POTASSIUM 3.7 mmol/L (3.5-5.1)
== END | disposition home or self-care (01) ==
LOC: EDSTATUS 09:00 → DAH 10:00
PROVIDERS: ATTEND Student in an Organized Health Care Education/Training Program
DX: Z01.818 Encounter for other preprocedural examination (principal); N18.6 End stage renal disease
CPT/HCPCS: 80053; 85025; 85610; 85730; 86850; 86900; 86901; 36415; 93005; A6260; J0330; J1100; J2001; J2405; J2704; J3490

== ENCOUNTER 2023-09-03 10:10 | Emergency (ER) | payer MEDICAID ==
[~2023-09-03] VITALS: Ht 149.9 cm; Wt 59.0 kg
[~2023-09-03 10:10] MED LIST changes: -CYCL-309 PO; -DEXA4TAB PO; -DEXAMETHASONE SOD PHOSPHATE 10MG/ML 1ML VIAL ONE; -FURO20TA4 PO; -GABA600T10 PO; -HYDR-4153 PO; -LEVO100T4 PO; -LIDOCAINE PF 100MG/5ML (2%) SYRINGE 5ML ONE; -METO100T14 PO; -ONDANSETRON 4MG INJ ONE; -PANT40TA54 PO; -PROPOFOL 10 MG/ML 20ML VIAL IV ONE; -SUCCINYLCHOLINE 200MG/10ML SYR ONE; -TRIA15CR48 TP
[2023-09-03] MEDS ORDERED: ASPIRIN 325MG TAB PO ONE (11:30)
[2023-09-03] MEDS ORDERED: NITROGLYCERIN 0.4 MG SL TAB SL PRN (11:30)
[2023-09-03 11:50] VITALS: BP 174/86; PULSE 92; RESP 16; O2SAT 97
== END 2023-09-03 11:52 | disposition left against medical advice (07) ==
LOC: EDH 10:10
DX: R07.89 Other chest pain (principal); I12.0 Hypertensive chronic kidney disease with stage 5 chronic kidney disease or end stage renal disease; E11.22 Type 2 diabetes mellitus with diabetic chronic kidney disease; N18.6 End stage renal disease; Z99.2 Dependence on renal dialysis; E66.01 Morbid (severe) obesity due to excess calories; E78.00 Pure hypercholesterolemia, unspecified; Z79.4 Long term (current) use of insulin; Z79.899 Other long term (current) drug therapy; Z88.0 Allergy status to penicillin
CPT/HCPCS: 93005

== ENCOUNTER 2023-09-06 08:48 | Day surgery (SDC) | payer MEDICAID ==
[2023-09-03 17:02] VITALS: BP 226/90; PULSE 70; RESP 19
[2023-09-06] VITALS (17 sets, daily range): BP systolic 145–168; BP diastolic 52–86; PULSE 77–85; RESP 15–18
[~2023-09-06] VITALS: Ht 142.2 cm; Wt 60.7 kg
[2023-09-06 12:28] LABS: BASOPHILS # (AUTO) 0.06 K/uL (0.00-0.20); BASOPHILS % (AUTO) 0.6 % (0.0-5.0); EOSINOPHILS # (AUTO) 0.23 K/uL (0.00-0.70); EOSINOPHILS % (AUTO) 2.2 % (0.0-8.0); HEMATOCRIT 30.7 % (36-48); IMMATURE GRANULOCYTE ABSOLUTE 0.05 K/uL (0-1); LYMPHOCYTES # (AUTO) 1.7 K/uL (1.0-4.8); MEAN CORPUSCULAR HGB CONC 31.6 g/dL (32.0-36.0); MEAN CORPUSCULAR VOLUME 91.6 fL (79-99); MONOCYTES # (AUTO) 0.8 K/uL (0.1-1.0); MONOCYTES % (AUTO) 7.4 % (3.0-13.0); NEUTROPHILS # (AUTO) 7.7 K/uL (1.8-7.7); NEUTROPHILS % (AUTO) 73.3 % (40.0-77.0); PLATELET COUNT (AUTO) 178 K/uL (130-400); RED BLOOD CELL COUNT(AUTO) 3.35 MIL/uL (4.00-5.50); WHITE BLOOD COUNT (AUTO) 10.5 K/uL (4.8-10.8)
[2023-09-06] MEDS ORDERED: CEFAZOLIN SODIUM 2 GM VIAL ONE (12:38)
[2023-09-06] MEDS ORDERED: 0.9% NACL 500ML IV.SOLN 500 ML IV ONE (12:38)
[2023-09-06 12:54] LABS: INR < 0.93 (0.85-1.15); PROTHROMBIN TIME 10.7 SEC (9.6-11.6)
[2023-09-06 13:05] LABS: ALBUMIN 2.6 g/dL (3.5-5.0); BILIRUBIN,TOTAL 0.2 mg/dL (0.2-1.0); POTASSIUM 5.1 mmol/L (3.5-5.1)
[2023-09-06] MEDS ORDERED: FENTANYL CITRATE PF 50 MCG/1 ML 2ML VIAL ONE ×2 (15:14→18:26)
[2023-09-06] MEDS ORDERED: PROPOFOL 10 MG/ML 20ML VIAL IV ONE (15:14)
[2023-09-06] MEDS ORDERED: MIDAZOLAM HCL 1 MG/ML 2ML VIAL ONE (15:15)
[2023-09-06] MEDS ORDERED: ROPIVACAINE 0.5% 5MG/ML 30ML IJ ONE (15:19)
[2023-09-06] MEDS ORDERED: LIDOCAINE 2%-EPI 1:200,000 20 ML VIAL IJ ONE (15:19)
[2023-09-06] MEDS ORDERED: BUPIVACAINE/PF 0.25% 30ML VIAL IJ ONE ×2 (16:36→17:23)
[2023-09-06] MEDS ORDERED: LIDOCAINE HCL 1% 20 ML VIAL ONE (16:37)
[2023-09-06] MEDS ORDERED: CEFAZOLIN SODIUM 2 GM VIAL IVPB ONE (16:50)
[2023-09-06] MEDS ORDERED: ROCURONIUM 10MG/1ML SYR 10 MG/ML ML ONE (16:56)
[2023-09-06] MEDS ORDERED: DEXAMETHASONE SOD PHOSPHATE 10MG/ML 1ML VIAL ONE (17:20)
[2023-09-06] MEDS ORDERED: LIDOCAINE HCL 1% 20 ML VIAL INJ ONE (17:23)
[2023-09-06] MEDS ORDERED: ONDANSETRON 4MG INJ ONE ×2 (17:28→19:47)
[2023-09-06] MEDS ORDERED: HEPARIN 10,000 UNIT/10ML (1,000 UNIT/ML) VIAL ONE (17:28)
[2023-09-06] MEDS ORDERED: EPHEDRINE SULFATE 50 MG/ML AMPULE ONE (17:41)
[2023-09-06] MEDS ORDERED: PROTAMINE SULFATE 10 MG/ML 5 ML VIAL ONE (17:56)
[2023-09-06] MEDS ORDERED: DESMOPRESSIN IV SCH (18:30)
[2023-09-06] MEDS ORDERED: [UNRECOGNIZED DRUG - OTHER] IV SCH (18:30)
[2023-09-06] MEDS ORDERED: DESMOPRESSIN 40MCG INJ 20 MCG in 0.9%NACL 50ML 50 ML IJ ONE (18:30)
[2023-09-06] MEDS ORDERED: MEPERIDINE-PF 25 MG/ML SYG ONE (19:13)
== END 2023-09-06 21:00 | disposition home or self-care (01) ==
LOC: DAH 08:48
PROVIDERS: ATTEND Student in an Organized Health Care Education/Training Program
DX: I13.2 Hypertensive heart and chronic kidney disease with heart failure and with stage 5 chronic kidney disease, or end stage renal disease (principal); E11.22 Type 2 diabetes mellitus with diabetic chronic kidney disease; N18.6 End stage renal disease; I50.9 Heart failure, unspecified; M60.232 Foreign body granuloma of soft tissue, not elsewhere classified, left forearm; T82.7XXA Infection and inflammatory reaction due to other cardiac and vascular devices, implants and grafts, initial encounter; E78.5 Hyperlipidemia, unspecified; J45.909 Unspecified asthma, uncomplicated; Z87.01 Personal history of pneumonia (recurrent); Z79.4 Long term (current) use of insulin; Z88.8 Allergy status to other drugs, medicaments and biological substances; Z83.3 Family history of diabetes mellitus; Z80.51 Family history of malignant neoplasm of kidney; Z82.49 Family history of ischemic heart disease and other diseases of the circulatory system; Z79.899 Other long term (current) drug therapy; Z87.891 Personal history of nicotine dependence; Z98.890 Other specified postprocedural states
CPT/HCPCS: 36832; 84484; 80053; 85025; 85610; 86850; 86900; 86901; 87070; 87076; 87077; 87186; 87205; 82948 ×3; 36415; 88300; 93005; A6260; A4663; J7040 ×2; J3010 ×2; J1100; J0665 ×2; J2597; J2720; J3490 ×3; J1644 ×2; J2250; J2405; J2175; J2795; J0690 ×2; A6446; A4649 ×3; C1713 ×2; A4215; A4223; A4222; A4221; A4600; J2704; G0168

== ENCOUNTER 2023-10-27 01:44 | Emergency (ER) | payer MEDICAID ==
[~2023-10-27] VITALS: Ht 144.8 cm; Wt 60.8 kg
[~2023-10-27 01:44] MED LIST changes: -ONDA4TAB10 PO
[2023-10-27] MEDS ORDERED: LABETALOL 20MG VIAL IV ONE (03:00)
[2023-10-27] MEDS ORDERED: CLONIDINE HCL 0.2 MG TABLET PO ONE (04:00)
[2023-10-27 04:09] LABS: BASOPHILS # (AUTO) 0.05 K/uL (0.00-0.20); BASOPHILS % (AUTO) 0.7 % (0.0-5.0); EOSINOPHILS # (AUTO) 0.25 K/uL (0.00-0.70); EOSINOPHILS % (AUTO) 3.4 % (0.0-8.0); HEMATOCRIT 29.3 % (36-48); IMMATURE GRANULOCYTE ABSOLUTE 0.02 K/uL (0-1); LYMPHOCYTES # (AUTO) 1.5 K/uL (1.0-4.8); LYMPHOCYTES % (AUTO) 20.4 % (21.0-51.0); MEAN CORPUSCULAR HGB CONC 32.4 g/dL (32.0-36.0); MEAN CORPUSCULAR VOLUME 92.4 fL (79-99); MONOCYTES # (AUTO) 0.7 K/uL (0.1-1.0); MONOCYTES % (AUTO) 9.1 % (3.0-13.0); NEUTROPHILS # (AUTO) 4.8 K/uL (1.8-7.7); NEUTROPHILS % (AUTO) 66.1 % (40.0-77.0); PLATELET COUNT (AUTO) 188 K/uL (130-400); RED BLOOD CELL COUNT(AUTO) 3.17 MIL/uL (4.00-5.50); RED CELL DISTRIBUTION WIDTH 13.6 % (11.0-15.5); WHITE BLOOD COUNT (AUTO) 7.3 K/uL (4.8-10.8)
[2023-10-27 04:20] LABS: CREATININE 3.1 mg/dL (0.5-1.5)
[2023-10-27 04:26] LABS: ALBUMIN 2.5 g/dL (3.5-5.0); BILIRUBIN,TOTAL 0.2 mg/dL (0.2-1.0); TOTAL PROTEIN, SERUM 5.9 g/dL (6.0-8.3)
[2023-10-27 06:17] VITALS: BP 168/55; PULSE 70; RESP 20; O2SAT 18
== END 2023-10-27 06:59 | disposition home or self-care (01) ==
LOC: EDH 01:44
DX: I12.0 Hypertensive chronic kidney disease with stage 5 chronic kidney disease or end stage renal disease (principal); E11.22 Type 2 diabetes mellitus with diabetic chronic kidney disease; N18.6 End stage renal disease; E66.01 Morbid (severe) obesity due to excess calories; Z68.29 Body mass index [BMI] 29.0-29.9, adult; Z99.2 Dependence on renal dialysis; Z79.899 Other long term (current) drug therapy; Z88.0 Allergy status to penicillin; Z88.8 Allergy status to other drugs, medicaments and biological substances
CPT/HCPCS: 99285; 71045; 84484; 80053; 85025; 36415; J3490

== ENCOUNTER → 2023-11-03 | Outpatient (CLI) | payer MEDICAID ==
[~2023-11-03] MED LIST changes: +IOHEXOL-350 75 ML VIAL IV ONE
== END | disposition home or self-care (01) ==
LOC: RAH 10:11
PROVIDERS: ATTEND Student in an Organized Health Care Education/Training Program
DX: N18.6 End stage renal disease (principal); I70.90 Unspecified atherosclerosis; K57.90 Diverticulosis of intestine, part unspecified, without perforation or abscess without bleeding; M47.815 Spondylosis without myelopathy or radiculopathy, thoracolumbar region
CPT/HCPCS: 75635; Q9967

== ENCOUNTER 2023-12-08 15:24 | Emergency (ER) | payer MEDICAID ==
[~2023-12-08] VITALS: Ht 144.8 cm; Wt 56.7 kg
[~2023-12-08 15:24] MED LIST changes: -HYDR-4154 PO; +HYDR50TA37 PO; -IOHEXOL-350 75 ML VIAL IV ONE
[2023-12-08 17:05] VITALS: BP 189/48; PULSE 61; RESP 18
== END 2023-12-08 18:47 | disposition left against medical advice (07) ==
LOC: EDH 15:24
DX: R10.9 Unspecified abdominal pain (principal); Z53.21 Procedure and treatment not carried out due to patient leaving prior to being seen by health care provider
CPT/HCPCS: 99281

== ENCOUNTER 2024-04-24 10:46 | Inpatient (IN) | payer MEDICAID ==
[2024-04-24] VITALS (26 sets, daily range): BP systolic 122–176; BP diastolic 44–100; PULSE 50–64; RESP 14–31; TEMP 97.9; O2SAT 95
[~2024-04-24] VITALS: Ht 142.2 cm; Wt 65.2 kg
[~2024-04-24 10:46] MED LIST changes: -ROSU10TA28 PO; +ROSU10TA72 PO
[2024-04-24] MEDS: 0.9%NACL 1000ML 1,000 ML IV ONE (11:08)
[2024-04-24 11:34] LABS: BASOPHILS # (AUTO) 0.03 K/uL (0.00-0.20); BASOPHILS % (AUTO) 0.3 % (0.0-5.0); HEMATOCRIT 36.4 % (36-48); IMMATURE GRANULOCYTE ABSOLUTE 0.13 K/uL (0-1); LYMPHOCYTES # (AUTO) 0.6 K/uL (1.0-4.8); LYMPHOCYTES % (AUTO) 4.8 % (21.0-51.0); MEAN CORPUSCULAR HEMOGLOBIN 31.7 pg (27.0-33.0); MEAN CORPUSCULAR HGB CONC 33.5 g/dL (32.0-36.0); MEAN CORPUSCULAR VOLUME 94.5 fL (79-99); MONOCYTES # (AUTO) 0.3 K/uL (0.1-1.0); MONOCYTES % (AUTO) 2.2 % (3.0-13.0); NEUTROPHILS % (AUTO) 91.6 % (40.0-77.0); NUCLEATED RED BLOOD CELLS 0.2 % (0.0-0.19); PLATELET COUNT (AUTO) 209 K/uL (130-400); RED BLOOD CELL COUNT(AUTO) 3.85 MIL/uL (4.00-5.50); RED CELL DISTRIBUTION WIDTH 13.4 % (11.0-15.5)
[2024-04-24 11:57] LABS: BILIRUBIN,TOTAL 0.4 mg/dL (0.2-1.0); CREATININE 4.7 mg/dL (0.5-1.0); POTASSIUM 4.2 mmol/L (3.5-5.1)
[2024-04-24] MEDS: INSULIN HUMULIN R 100 UNIT/ML 3ML IV ONE (12:09)
[2024-04-24] MEDS ORDERED: ACETAMINOPHEN 325 MG TAB PO PRN (14:30)
[2024-04-24] MEDS ORDERED: VANCOMYCIN PROTOCOL PER PHARMACY IV SCH (15:00)
[2024-04-24] MEDS: 0.9%NACL 1000ML 1,000 ML IV SCH (15:00)
[2024-04-24] MEDS: HEPARIN 5,000 UNIT VIAL SQ SCH (15:10)
[2024-04-24] MEDS: CEFEPIME HCL 2 GM VIAL IVPB SCH (15:12)
[2024-04-24 15:16] LABS: ABG BASE EXCESS -0.8 mmol/L (-2.0-3.0); ABG HCO3 23.8 mmol/L (21.0-28.0); ABG OXYGEN SATURATION 96.3 % (95.0-99.0); ABG PCO2 40 mmHg (32-45); ABG PH 7.398 (7.35-7.450); DEVICE COMMENT RR RA; PO2, ARTERIAL BG 83.7 mmHg (83.0-108.0)
[2024-04-24] MEDS ORDERED: INSULIN REGULAR, HUMAN 3ML 100 UNIT in 0.9%NACL 100ML 100 ML IV SCH (15:30)
[2024-04-24] MEDS ORDERED: POTASSIUM CHLORIDE 10MEQ/100ML 100 ML IV PRN (15:30)
[2024-04-24] MEDS ORDERED: GLUCAGON 1MG KIT 1 MG ML IM PRN (15:30)
[2024-04-24] MEDS ORDERED: MAGNESIUM 2GM PREMIX 50ML 50 ML IV SCH (15:30)
[2024-04-24 15:37] LABS: APPEARANCE,URINE CLEAR (CLEAR); BILIRUBIN,URINE NEGATIVE (NEGATIVE); COLOR,URINE LIGHT-YELLOW (YELLOW); GLUCOSE, URINE (UA) >=1000 mg/dL (NEGATIVE); KETONES,URINE NEGATIVE (NEGATIVE); LEUKOCYTE ESTERASE ,URINE NEGATIVE Leu/uL (NEGATIVE); NITRATE,URINE NEGATIVE (NEGATIVE); OCCULT BLOOD,URINE NEGATIVE (NEGATIVE); PROTEIN,URINE 600 mg/dL (NEGATIVE); UROBILINOGEN,URINE 0.2 mg/dL (0.2-1.0)
[2024-04-24 15:38] LABS: ADD UA MICROSCOPIC YES
[2024-04-24 15:40] LABS: MUCUS,URINE RARE LPF (None Seen); SQUAMOUS EPITHELIAL CELL,UR RARE /HPF (0-2); WBC,URINE 0-1 /HPF (0-1)
[2024-04-24 15:47] LABS: CREATININE 4.6 mg/dL (0.5-1.0); POTASSIUM 4.4 mmol/L (3.5-5.1)
[2024-04-24 16:29] LABS: SARS-CoV-2, RNA, NAAT NEGATIVE SARS CoV-2 (NEGATIVE)
[2024-04-24 16:34] LABS: THYROID STIMULATING HORMONE 0.96 uIU/mL (0.36-3.74)
[2024-04-24 16:35] LABS: INFLUENZA TYPE A Negative For Type A (NEGATIVE); INFLUENZA TYPE B Negative For Type B (NEGATIVE)
[2024-04-24] MEDS: INSULIN GLARGINE 100 UNITS/ML 10 ML VIAL SQ SCH (16:45)
[2024-04-24] MEDS: INSULIN HUMULIN R 100 UNIT/ML 3ML SQ SCH (16:46)
[2024-04-24 20:11] LABS: CREATININE 4.6 mg/dL (0.5-1.0); POTASSIUM 3.5 mmol/L (3.5-5.1)
[2024-04-24] MEDS ORDERED: INSULIN GLARGINE 100 UNITS/ML 10 ML VIAL SQ SCH (21:00)
[2024-04-25] VITALS (18 sets, daily range): BP systolic 120–166; BP diastolic 25–85; PULSE 49–62; RESP 14–21; TEMP 97.6; O2SAT 95–98
[2024-04-25] MEDS: 0.9%NACL 1000ML 1,000 ML IV SCH (00:12)
[2024-04-25] MEDS: HEPARIN 5,000 UNIT VIAL IJ SCH (00:15)
[2024-04-25 03:57] LABS: HEMATOCRIT 34.8 % (36-48); MEAN CORPUSCULAR HEMOGLOBIN 30.8 pg (27.0-33.0); MEAN CORPUSCULAR HGB CONC 33.6 g/dL (32.0-36.0); MEAN CORPUSCULAR VOLUME 91.6 fL (79-99); NUCLEATED RED BLOOD CELLS 0.2 % (0.0-0.19); PLATELET COUNT (AUTO) 158 K/uL (130-400); RED CELL DISTRIBUTION WIDTH 13.4 % (11.0-15.5); WHITE BLOOD COUNT (AUTO) 11.1 K/uL (4.8-10.8)
[2024-04-25 04:13] LABS: CREATININE 2.5 mg/dL (0.5-1.0); PHOSPHORUS 3.8 mg/dL (2.5-4.9); POTASSIUM 3.1 mmol/L (3.5-5.1)
[2024-04-25 05:59] LABS: HEMOGLOBIN A1C 9.1 % (4.0-6.0)
[2024-04-25 06:18] LABS: BASOPHILS % (MANUAL) 2 % (0-2); LYMPHOCYTES % (MANUAL) 18 % (22-44); MAN.DIFF COMMENT-IMPRESSION MANUAL DIFFERENTIAL; MONOCYTES % (MANUAL) 9 % (2-9); PLATELET MORPHOLOGY COMMENT ADEQUATE; SEGMENTED NEUTROPHILS % 71 % (40-70); TOTAL CELLS COUNTED 100; WBC MORPHOLOGY NORMAL
[2024-04-25 08:57] LABS: CREATININE 2.9 mg/dL (0.5-1.0)
[2024-04-25] MEDS: CEFEPIME HCL 1 GM VIAL IVPB SCH (15:47)
[2024-04-25 16:22] LABS: HEPATITIS B CORE AB TOTAL Non-Reactive (Nonreactive); HEPATITIS B SURFACE ANTIBODY Positive (Reactive); HEPATITIS B SURFACE ANTIGEN Non-Reactive (Nonreactive)
[2024-04-25] MEDS: HYDRALAZINE 25MG TABLET PO SCH (21:00)
[2024-04-26] VITALS (22 sets, daily range): BP systolic 106–189; BP diastolic 37–74; PULSE 58–74; RESP 14–18; TEMP 97.9; O2SAT 95
[2024-04-26 05:38] LABS: HEMATOCRIT 37.8 % (36-48); MEAN CORPUSCULAR HEMOGLOBIN 31.7 pg (27.0-33.0); MEAN CORPUSCULAR HGB CONC 34.1 g/dL (32.0-36.0); MEAN CORPUSCULAR VOLUME 92.9 fL (79-99); PLATELET COUNT (AUTO) 151 K/uL (130-400); RED BLOOD CELL COUNT(AUTO) 4.07 MIL/uL (4.00-5.50); RED CELL DISTRIBUTION WIDTH 13.8 % (11.0-15.5); WHITE BLOOD COUNT (AUTO) 9.2 K/uL (4.8-10.8)
[2024-04-26 05:59] LABS: MAGNESIUM 2.2 mg/dL (1.80-2.40); POTASSIUM 3.4 mmol/L (3.5-5.1)
[2024-04-26 06:31] LABS: EOSINOPHILS % (MANUAL) 3 % (1-6); LYMPHOCYTES % (MANUAL) 17 % (22-44); MAN.DIFF COMMENT-IMPRESSION MANUAL DIFFERENTIAL; MONOCYTES % (MANUAL) 2 % (2-9); SEGMENTED NEUTROPHILS % 78 % (40-70); TOTAL CELLS COUNTED 100
[2024-04-26 06:32] LABS: PLATELET MORPHOLOGY COMMENT ADEQUATE; WBC MORPHOLOGY IMMATURE LYMPHS 1+
[2024-04-26] MEDS: INSULIN HUMULIN R 100 UNIT/ML 3ML SQ SCH (07:30)
[2024-04-26] MEDS: ISOSORBIDE MONO 30MG SR TAB PO SCH (09:00)
[2024-04-26] MEDS: DULOXETINE HCL 30 MG CAP PO SCH (09:31)
[2024-04-26] MEDS: NIFEDIPINE ER 30 MG TAB PO SCH (09:34)
[2024-04-26] MEDS: ONDANSETRON 4MG INJ IVP PRN (12:40)
[2024-04-26] MEDS: DEXTROSE 50%-WATER 50 ML DISP.SYRIN IV PRN (16:10)
== END 2024-04-26 21:00 | disposition home or self-care (01) | DRG 420 ==
LOC: EDH 10:46 → EDHIP 10:47 → 2CH 17:39 → 3AH 04-25 14:50
PROVIDERS: ADMIT Internal Medicine Infectious Disease; ATTEND Internal Medicine Infectious Disease
PROC: 5A1D70Z Performance of Urinary Filtration, Intermittent, Less than 6 Hours Per Day (ICD-10-PCS; principal; 2024-04-24)
PROC: 5A1D70Z Performance of Urinary Filtration, Intermittent, Less than 6 Hours Per Day (ICD-10-PCS; 2024-04-26)
DX: E11.00 Type 2 diabetes mellitus with hyperosmolarity without nonketotic hyperglycemic-hyperosmolar coma (NKHHC) (principal); I12.0 Hypertensive chronic kidney disease with stage 5 chronic kidney disease or end stage renal disease; N18.6 End stage renal disease; D63.1 Anemia in chronic kidney disease; E11.22 Type 2 diabetes mellitus with diabetic chronic kidney disease; E87.70 Fluid overload, unspecified; E86.0 Dehydration; F41.9 Anxiety disorder, unspecified; E11.51 Type 2 diabetes mellitus with diabetic peripheral angiopathy without gangrene; E66.01 Morbid (severe) obesity due to excess calories; L40.8 Other psoriasis; D72.829 Elevated white blood cell count, unspecified; E87.1 Hypo-osmolality and hyponatremia; E87.6 Hypokalemia; Z68.32 Body mass index [BMI] 32.0-32.9, adult; Z79.4 Long term (current) use of insulin; Z82.49 Family history of ischemic heart disease and other diseases of the circulatory system; Z83.3 Family history of diabetes mellitus; Z91.148 Patient's other noncompliance with medication regimen for other reason; Z99.2 Dependence on renal dialysis
CPT/HCPCS: 36415; 36600; 71045; 80048; 80053; 81001; 82010; 82533; 82803; 82948; 83036; 83735; 84100; 84439; 84443; 85025; 86704; 86706; 87040; 87340; 87635; 87804; 90935; 93005; 96372; 96375; G0378; J0692; J1644; J1815; J2405; J7070

== ENCOUNTER 2024-07-17 08:18 | Emergency (ER) | payer MEDICAID ==
[~2024-07-17] VITALS: Ht 142.2 cm; Wt 64.4 kg
[2024-07-17 08:28] VITALS: TEMP 99.5
[2024-07-17 08:45] LABS: BASOPHILS # (AUTO) 0.05 K/uL (0.00-0.20); BASOPHILS % (AUTO) 0.5 % (0.0-5.0); EOSINOPHILS # (AUTO) 0.15 K/uL (0.00-0.70); EOSINOPHILS % (AUTO) 1.6 % (0.0-8.0); HEMATOCRIT 36.1 % (36-48); IMMATURE GRANULOCYTE ABSOLUTE 0.03 K/uL (0-1); LYMPHOCYTES # (AUTO) 0.8 K/uL (1.0-4.8); LYMPHOCYTES % (AUTO) 8.3 % (21.0-51.0); MEAN CORPUSCULAR HEMOGLOBIN 30.1 pg (27.0-33.0); MEAN CORPUSCULAR HGB CONC 32.4 g/dL (32.0-36.0); MEAN CORPUSCULAR VOLUME 92.8 fL (79-99); NEUTROPHILS # (AUTO) 7.6 K/uL (1.8-7.7); NEUTROPHILS % (AUTO) 79.3 % (40.0-77.0); PLATELET COUNT (AUTO) 150 K/uL (130-400); RED BLOOD CELL COUNT(AUTO) 3.89 MIL/uL (4.00-5.50); RED CELL DISTRIBUTION WIDTH 12.9 % (11.0-15.5); WHITE BLOOD COUNT (AUTO) 9.6 K/uL (4.8-10.8)
[2024-07-17 08:59] LABS: CREATININE 6.8 mg/dL (0.5-1.0); POTASSIUM 4.8 mmol/L (3.5-5.1)
[2024-07-17 09:06] LABS: B-TYPE NATRIURETIC PEPTIDE 488 pg/mL (0-100)
[2024-07-17 09:31] LABS: INFLUENZA TYPE A Negative For Type A (NEGATIVE); INFLUENZA TYPE B Negative For Type B (NEGATIVE)
[2024-07-17 09:34] LABS: SARS-CoV-2, RNA, NAAT NEGATIVE SARS CoV-2 (NEGATIVE)
[2024-07-17] MEDS ORDERED: AZIT250T9 PO (10:52)
[2024-07-17] MEDS ORDERED: D ME PO (10:52)
[2024-07-17 11:02] VITALS: BP 118/40; PULSE 69; RESP 17; O2SAT 97
== END 2024-07-17 11:38 | disposition home or self-care (01) ==
LOC: EDH 08:18
DX: I12.0 Hypertensive chronic kidney disease with stage 5 chronic kidney disease or end stage renal disease (principal); E11.22 Type 2 diabetes mellitus with diabetic chronic kidney disease; N18.6 End stage renal disease; A08.4 Viral intestinal infection, unspecified; J20.9 Acute bronchitis, unspecified; F41.9 Anxiety disorder, unspecified; E66.01 Morbid (severe) obesity due to excess calories; I49.3 Ventricular premature depolarization; Z20.822 Contact with and (suspected) exposure to COVID-19; Z79.4 Long term (current) use of insulin; Z79.899 Other long term (current) drug therapy; Z88.0 Allergy status to penicillin; Z98.890 Other specified postprocedural states
CPT/HCPCS: 36415; 71045; 74176; 80048; 82550; 83880; 84484; 85025; 87635; 87804; 93005

== ENCOUNTER 2024-08-24 16:00 | Emergency (ER) | payer MEDICAID ==
[~2024-08-24] VITALS: Ht 142.2 cm; Wt 64.4 kg
[~2024-08-24 16:00] MED LIST changes: +ALEN70TA80 PO; -BENZ-226 PO; -FURO40TA5 PO; +IBUP-2077 PO; -INSLAN SQ; +METO100T14 PO; -ONDA-104 PO; +SEVE800PW PO; +TORS100T16 PO
[2024-08-24 16:41] VITALS: BP 123/44; PULSE 73; RESP 16; TEMP 98.1
--- NOTE | 2024-08-24 17:15 | ERN ---
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 Patient reports bilateral hand pain, knee pain, abdominal pain, but denies any LOC, vomiting or any other associated symptoms at this time. Patient states that she fell forward while trying to get out of the vehicle today. Patient reports she had a second dialysis access placed on Wednesday on her left lower extremity. Patient received dialysis yesterday, nephrologists is Dr. Mccyo. No other medical or surgical history mentioned. Allergies: Coded Allergies: No Known Drug Allergies (Verified Allergy, Unknown, 12/18/22) piperacillin (Unverified Allergy, Unknown, 04/14/23) tazobactam (Unverified Allergy, Unknown, 04/14/23) Home Meds Reported Medications Ibuprofen (Ibuprofen 800 mg Tab) 800 Mg Tab, 1 TAB PO TID PRN for PAIN for 10 Days, #30 TAB 0 Refills 08/21/24 Alendronate Sodium (Alendronate Sodium) 70 Mg Tablet, 70 MG PO QWEEK, TAB 08/21/24 Sevelamer Carbonate (Renvela Pwdr) 0.8 Gram Powder, 800 MG PO TID, APPL 08/21/24 Metoprolol Tartrate (Metoprolol Tartrate) 100 Mg Tablet, 100 MG PO BID, TAB 08/21/24 Torsemide (Torsemide) 100 Mg Tablet, 100 MG PO DAILY, TAB 08/21/24 Losartan Potassium (Losartan Potassium) 100 Mg Tablet, 100 MG PO AM, TAB 08/04/23 Rosuvastatin Calcium (Rosuvastatin Calcium) 10 Mg Tablet, 10 MG PO AM, TAB 08/04/23 Duloxetine HCl (Duloxetine HCl) 30 Mg Capsule.dr, 30 MG PO AM, CAP 08/04/23 Hydralazine HCl (Hydralazine HCl) 50 Mg Tablet, 50 MG PO BID, TAB 08/04/23 Levothyroxine Sodium (Levothyroxine Sodium) 50 Mcg Tablet, 50 MCG PO ACBKFST, TAB 08/04/23 Metolazone (Metolazone) 5 Mg Tablet, 5 MG PO DAILY, TAB 03/20/23 Nifedipine (Nifedipine ER) 90 Mg Tablet.er, 90 MG PO DAILY, TAB 03/20/23 Isosorbide Mononitrate (Isosorbide Mononitrate ER) 30 Mg Tab.er.24h, 30 MG PO DAILY, TAB 03/20/23 Discontinued Reported Medications Insulin Glargine,Hum.rec.anlog (Lantus) 100 Unit/Ml Inj, 15 UNITS SQ BID, ML 08/04/23 Benzonatate (Benzonatate) 100 Mg Capsule, 100 MG PO TID PRN for COUGH, CAP 08/04/23 Furosemide (Furosemide) 40 Mg Tablet, 60 MG PO BID, TAB 08/04/23 Ondansetron HCl (Ondansetron HCl) 4 Mg Tablet, 4 MG PO Q8H PRN for NAUSEA, TAB 08/04/23 Discontinued Scripts D-Methorphan/Acetamin/Doxylamn (Cough & Sore Throat Liquid) 30 Mg-1,000 Mg-12.5 Mg/30 Ml Liquid, 10 ML PO TID for cough, #240 ML Prov:ROGE MCCONNELL MD 07/17/24 Azithromycin (Azithromycin) 250 Mg Tablet, 250 MG PO DAILY for 7 Days, #7 TAB Prov:ROGE MCCONNELL MD 07/17/24 Past Medical History Past Medical History: Diabetes-Type II, High Cholesterol, Hypertension, Hypothyroid Additional Past Medical Hx: PSORIASIS, morbidly obese Surgical History: , LAVA Surgical History Other: PORT Family History: HTN Social History: Negative, Lives with family History: Not Applicable Review of System Dictation Constitutional: Negative for fever,chills, and weight loss Eyes: Negative for injury, pain,redness, and discharge ENT: Negative for injury,pain or swelling Cardiovascular: Negative for chest pain, palpitations, and edema Respiratory: Negative for shortness of breath, cough, and wheezing, Abdomen/GI: Positive for abdominal pain, negative for nausea, vomiting, diarrhea, and constipation Back: Negative for injury and pain : Negative for injury, bleeding and discharge MS/Extremity: Positive for bilateral hand pain, lower extremity pain negative for deformity Skin: Negative for rash, and discoloration Neuro: Negative for headache, weakness, numbness, tingling, and seizure Psych: Negative for suicide ideation, homicidal ideation, and hallucinations Initial Vital Sign VS Vital Signs Date Time Temp Pulse Resp B/P (MAP) Pulse Ox O2 Delivery O2 Flow Rate FiO2 08/24/24 16:41 98.1 73 16 123/44 96 Room Air 0 Physical Exam Dictation General: awake, alert, NAD, right chest Kedar catheter in place, left lower extremity fistula covered by a wound bag Head/Face: Normocephalic, atraumatic Eyes: PERRL, EOMI, vision at baseline ENT: oral cavity clear, TMs clear, no signs of infection Neck: Trachea midline, supple, no nuchal rigidity Cardiovascular: RRR, normal S1/S2, No MRGs, no JVD Respiratory: CTAB, no respiratory distress, No rales or wheezes Abdomen: Soft, non-tender, non-distended, normal bowel sounds, no guarding or rebound. Skin: Warm, dry, normal turgor, no rash MS/Extremity: Pulses equal, no cyanosis, neurovascular intact, bilateral hand tenderness, ecchymosis on the left hand, bilateral knee mild tenderness Neuro: COAx4, GCS 15, strength 5/5, CN 2-12 intact, normal cerebellar exam, normal gait, Psych: Normal behavior, mood, and affect normal Results (Laboratory/Radiology) X-RAY Comment: Plain x-rays reviewed and interpreted by me independently, no fractures or dislocations to bilateral wrists bilateral knees and chest x-ray. ED Course ED Course Orders Procedure Category Date Status Time Knee 3 Vw Bilateral RAD 08/24/24 Taken 17:03 Wrist 2vws Lt RAD 08/24/24 Taken 17:03 Wrist 2vws Rt RAD 08/24/24 Taken 17:03 Chest 1vw RAD 08/24/24 Taken 17:03 Hydrocodone/Apap PHA 08/24/24 Complete Tab ([place] 10) 17:30 Current Medications Medications (Trade) Dose Ordered Sig/Ely Route PRN Reason Start Time Stop Time Status Last Admin Dose Admin Acetaminophen/ Hydrocodone Bitart (NORco 10) 1 tab ONCE ONCE PO 08/24/24 17:30 08/24/24 17:31 DC Vital Signs Date Time Temp Pulse Resp B/P (MAP) Pulse Ox O2 Delivery O2 Flow Rate FiO2 08/24/24 16:41 98.1 73 16 123/44 96 Room Air 0 Medical Decision Making MDM MDM: Differential diagnosis: Fall, contusion, fracture Previous outside records reviewed: Old ER visits. Need for hospitalization: Patient does not meet criteria for hospitalization. Need for emergency major/minor surgery: No Patient's prior external medical records from other ER visits were reviewed by me as indicated. Prior testing and results from previous visits were reviewed. Prior tests were taken into account with medical decision making and resource utilization, independent historian/historians were used to obtain complete medical history. I independently interpreted the test that were performed, results were reviewed by me and considered findings on radiology if ordered. Medical management and examination interpretation discussions were had by me with other qualified healthcare professionals as indicated for the patient's care. DX & DISP Disposition: Discharge Departure Impression: Primary Impression: Fall Additional Impression: Multiple contusions Condition: Stable Referrals: BELEN JAVED MD (PCP) I have reviewed, & agreed with my scribe's, documentation. (Entered by Vikas Nath, acting as a scribe for Dr. Nichols) I personally scribed for OLIVER NICHOLS MD ([email or web address]) on 08/24/24 at 17:15. Electronically submitted by Vikas Nath ([email or web address]). OLIVER NICHOLS MD Aug 24, 2024 17:15
[2024-08-24] MEDS ORDERED: HYDROcodone/acetaMINOPHEN 10/325 MG TAB PO ONE (17:30)
--- NOTE | 2024-08-24 18:07 | HMCIMG ---
Exam Type: WRIST 2VWS LT Clinical Information: fall Comparison: None Findings: There is osteopenia. The examination is otherwise unremarkable. No fractures or dislocations are seen. No radiopaque foreign bodies are noted. There are vascular calcifications. There are IMPRESSION: Osteopenia. No acute pathology.
--- NOTE | 2024-08-24 18:09 | HMCIMG ---
Exam Type: WRIST 2VWS RT Clinical Information: fall Comparison: None Findings: There is osteopenia. The examination is otherwise unremarkable. No fractures or dislocations are seen. No radiopaque foreign bodies are noted. There are vascular calcifications. There are IMPRESSION: Osteopenia. No acute pathology.
--- NOTE | 2024-08-24 18:20 | HMCIMG ---
Exam Type: CHEST 1VW Clinical Information: fall Comparison: None Findings: Right permacath line is noted with tip at the distal superior vena caval level. There is cardiomegaly. There is prominence of the vascular markings consistent with pulmonary venous congestion. IMPRESSION: Findings consistent with pulmonary venous congestion.
--- NOTE | 2024-08-24 18:30 | NUR ---
MOVED INTO INTERNAL WAITING AREA AT THIS TIME FOR ASSESSMENT AND DC INSTRUCTIONS.
--- NOTE | 2024-08-25 00:14 | HMCIMG ---
KNEE 3 VW BILATERAL REASON: fall. COMPARISON: None TECHNIQUE: 6 images of bilateral knees were obtained. FINDINGS: Soft tissue swelling is seen. Vascular calcifications are seen. There is no acute displaced fracture or dislocation. IMPRESSION: No acute displaced fracture.
== END 2024-08-24 18:41 | disposition home or self-care (01) ==
LOC: EDH 16:00
DX: S60.222A Contusion of left hand, initial encounter (principal); M79.641 Pain in right hand; M25.561 Pain in right knee; M25.562 Pain in left knee; I12.0 Hypertensive chronic kidney disease with stage 5 chronic kidney disease or end stage renal disease; E11.22 Type 2 diabetes mellitus with diabetic chronic kidney disease; N18.6 End stage renal disease; E03.9 Hypothyroidism, unspecified; E78.00 Pure hypercholesterolemia, unspecified; E66.01 Morbid (severe) obesity due to excess calories; L40.9 Psoriasis, unspecified; Z88.1 Allergy status to other antibiotic agents; Z79.4 Long term (current) use of insulin; Z79.899 Other long term (current) drug therapy; Z98.890 Other specified postprocedural states; Z99.2 Dependence on renal dialysis; W18.39XA Other fall on same level, initial encounter; Y93.89 Activity, other specified; Y92.89 Other specified places as the place of occurrence of the external cause; Y99.8 Other external cause status
CPT/HCPCS: 71045; 73100

== ENCOUNTER 2024-12-29 16:58 | Emergency (ER) | payer MEDICAID ==
[~2024-12-29] VITALS: Ht 144.8 cm; Wt 68.5 kg
--- NOTE | 2024-12-29 17:07 | ERN ---
ED Note History of Present Illness Stated Complaint: HYPERTENSION Chief Complaint: Hypertension Time Seen by MD: 17:03 Dictation: PATIENT IS A 64-YEAR-OLD FEMALE HERE WITH A HISTORY OF DIABETES HYPERTENSION AND END-STAGE RENAL DISEASE. SHE GOES TO HEMODIALYSIS Wednesday AND WEDNESDAY, STATES SHE WENT TO DIALYSIS THIS AFTERNOON AND HER BLOOD PRESSURE WAS 214 AND SHE TOLD THE TECH THAT SHE HAD NOT TAKEN HER BLOOD PRESSURE MEDICINES. THE TECH TOLD HER THAT THEY COULD NOT DIALYZER WITH A BLOOD PRESSURE THAT HIGH AND SENT H ER TO THE EMERGENCY ROOM FOR FURTHER EVALUATION AND TREATMENT. NEPHROLOGISTS HIS DR. CLAUDIO Allergies: Coded Allergies: No Known Drug Allergies (Verified Allergy, Unknown, 12/18/22) piperacillin (Unverified Allergy, Unknown, 04/14/23) tazobactam (Unverified Allergy, Unknown, 04/14/23) Home Meds Reported Medications Ibuprofen (Ibuprofen 800 mg Tab) 800 Mg Tab, 1 TAB PO TID PRN for PAIN for 10 Days, #30 TAB 0 Refills 08/21/24 Alendronate Sodium (Alendronate Sodium) 70 Mg Tablet, 70 MG PO QWEEK, TAB 08/21/24 Sevelamer Carbonate (Renvela Pwdr) 0.8 Gram Powder, 800 MG PO TID, APPL 08/21/24 Metoprolol Tartrate (Metoprolol Tartrate) 100 Mg Tablet, 100 MG PO BID, TAB 08/21/24 Torsemide (Torsemide) 100 Mg Tablet, 100 MG PO DAILY, TAB 08/21/24 Losartan Potassium (Losartan Potassium) 100 Mg Tablet, 100 MG PO AM, TAB 08/04/23 Rosuvastatin Calcium (Rosuvastatin Calcium) 10 Mg Tablet, 10 MG PO AM, TAB 08/04/23 Duloxetine HCl (Duloxetine HCl) 30 Mg Capsule.dr, 30 MG PO AM, CAP 08/04/23 Hydralazine HCl (Hydralazine HCl) 50 Mg Tablet, 50 MG PO BID, TAB 08/04/23 Levothyroxine Sodium (Levothyroxine Sodium) 50 Mcg Tablet, 50 MCG PO ACBKFST, TAB 08/04/23 Metolazone (Metolazone) 5 Mg Tablet, 5 MG PO DAILY, TAB 03/20/23 Nifedipine (Nifedipine ER) 90 Mg Tablet.er, 90 MG PO DAILY, TAB 03/20/23 Isosorbide Mononitrate (Isosorbide Mononitrate ER) 30 Mg Tab.er.24h, 30 MG PO DAILY, TAB 03/20/23 Past Medical History Past Medical History: Diabetes-Type II, High Cholesterol, Hypertension, Hypothyroid, Renal Failure Additional Past Medical Hx: PSORIASIS, morbidly obese Surgical History: , LAVA Surgical History Other: PORT. 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 GRAFT Family History: HTN Social History: Negative, Lives with family History: Not Applicable RN Note Reviewed/Agreed w/PFSH: Yes Review of System Dictation CONSTITUTIONAL: NEGATIVE EXCEPT FOR HPI HEAD/FACE: NEGATIVE EXCEPT FOR HPI EENT: NEGATIVE EXCEPT FOR HPI RESPIRATORY: NEGATIVE EXCEPT FOR HPI GASTROINTESTINAL/ABDOMINAL: NEGATIVE EXCEPT FOR HPI GENITOURINARY: NEGATIVE EXCEPT FOR HPI MUSCULOSKELETAL: NEGATIVE EXCEPT FOR HPI INTEGUMENTARY: NEGATIVE EXCEPT FOR HPI NEUROLOGICAL/PSYCH: NEGATIVE EXCEPT FOR HPI HEMATOLOGIC/LYMPHATIC: NEGATIVE EXCEPT FOR HPI ALL SYSTEMS NEGATIVE, EXCEPT NOTED ABOVE. 13 POINT REVIEW OF SYSTEMS ASSESSED AND ALL NEGATIVE EXCEPT FOR ABOVE. Initial Vital Sign VS Vital Signs Date Time Temp Pulse Resp B/P (MAP) Pulse Ox O2 Delivery O2 Flow Rate FiO2 12/29/24 17:00 97.9 58 18 214/65 0 12/29/24 18:34 Room Air* 0 21 Physical Exam Dictation VITAL SIGNS REVIEWED GENERAL APPEARANCE: ALERT, ORIENTED X 3, NO ACUTE DISTRESS, WELL DEVELOPED, NOURISHED. HEAD AND FACE: NON-TRAUMATIC. EYES: PERRL, PINK CONJUNCTIVAS, EYELID NO TRAUMA, ANTERIOR CHAMBER WITH ARCUS SENILIS. EARS: PINNAS INTACT AND NO SIGNS OF TRAUMA OR ERYTHEMA EAR CANALS CLEAR AND NO DISCHARGE TM NO ERYTHEMA NOSE: NO DISCHARGE, NO BLEEDING. OROPHARYNX: MOUTH NORMAL, TONGUE PINK, PHARYNX CLEAR,NO ERYTHEMA, TONSILS NO EXUDATES, NO ABSCESSES NOTED, MUCOUS MEMBRANE MOIST NECK: SUPPLE, NON-TENDER, NO THYROMEGALY, NO MASSES, NO JVD, NO BRUITS BREAST:DEFERRED CHEST:NO TENDERNESS, NO CREPITUS, NO PARADOXICAL MOVEMENT, NO RETRACTIONS LUNGS:CLEAR, WELL-VENTILATED, SYMMETRIC, NO RALES, NO WHEEZING, NO RHONCHI, NO STRIDOR, GOOD BREATH SOUNDS BILATERALLY HEART: REGULAR RATE, REGULAR RHYTHM, NO MURMUR, NO GALLOPS VASCULAR: NO PERIPHERAL EDEMA, ABDOMEN: SOFT, POSITIVE BOWEL SOUNDS, NONDISTENDED, NO GUARDING, NONTENDER, NO REBOUND, NO MASSES NO HEPATOMEGALY, NO SPLENOMEGALY, NO MEDRANO'S SIGN, NO HERNIAS. RECTAL: DEFERRED GENITAL: DEFERRED NEUROLOGICAL: NORMAL SPEECH, MOTOR FUNCTION INTACT, SENSORY FUNCTION INTACT MUSCULOSKELETAL: NECK NONTENDER, FULL RANGE OF MOTION, BACK NONTENDER, FULL RANGE OF MOTION, EXTREMITIES: NONTENDER, FULL RANGE OF MOTION SKIN: COLOR PINK, DRY, NO TURGOR, NO RASH, NO LACERATIONS, NO ABRASIONS, NO CONTUSIONS. LYMPHATIC: DEFERRED Results (Laboratory/Radiology) Laboratory/Radiology Laboratory Tests Test 12/29/24 17:19 White Blood Count 8.9 K/uL (4.8-10.8) Red Blood Count 3.60 MIL/uL (4.00-5.50) L Hemoglobin 10.7 g/dL (12.0-16.0) L Hematocrit 33.1 % (36-48) L Mean Corpuscular Volume 91.9 fL (79-99) Mean Corpuscular Hemoglobin 29.7 pg (27.0-33.0) Mean Corpuscular Hemoglobin Concent 32.3 g/dL (32.0-36.0) Red Cell Distribution Width 13.9 % (11.0-15.5) Platelet Count 194 K/uL (130-400) Mean Platelet Volume 11.5 fL (7.5-10.5) H Immature Granulocyte % (Auto) 0.3 % (0-1) Neutrophils (%) (Auto) 74.7 % (40.0-77.0) Lymphocytes (%) (Auto) 16.4 % (21.0-51.0) L Monocytes (%) (Auto) 5.7 % (3.0-13.0) Eosinophils (%) (Auto) 2.1 % (0.0-8.0) Basophils (%) (Auto) 0.8 % (0.0-5.0) Neutrophils # (Auto) 6.7 K/uL (1.8-7.7) Lymphocytes # (Auto) 1.5 K/uL (1.0-4.8) Monocytes # (Auto) 0.5 K/uL (0.1-1.0) Eosinophils # (Auto) 0.19 K/uL (0.00-0.70) Basophils # (Auto) 0.07 K/uL (0.00-0.20) Absolute Immature Granulocyte (auto 0.03 K/uL (0-1) Nucleated Red Blood Cells 0.0 % (0.0-0.19) Sodium Level 138 mmol/L (136-145) Potassium Level 5.2 mmol/L (3.5-5.1) H Chloride Level 100 mmol/L (101-111) L Carbon Dioxide Level 26 mmol/L (21-32) Blood Urea Nitrogen 69 mg/dL (7-18) H Creatinine 5.7 mg/dL (0.5-1.0) H Glomerular Filtration Rate Calc 8 mL/min (>90) Random Glucose 110 mg/dL (70-105) H Total Calcium 8.5 mg/dL (8.5-10.1) Troponin I High Sensitivity 10 ng/L (4-50) Labs Reviewed?: Yes EKG Comment: EKG SINUS BRADYCARDIA/HEART RATE 59/AXIS NORMAL ED Course ED Course Orders Procedure Category Date Status Time Cbc With Differential LAB 12/29/24 Complete 17:05 Troponin I High LAB 12/29/24 Complete Sensitivity 17:05 12 Lead Ekg Tracing- EKG 12/29/24 Complete Technical 17:05 Chest 1vw RAD 12/29/24 Resulted 17:05 Basic Metabolic Panel LAB 12/29/24 Complete 17:05 Hydralazine 20mg Inj PHA 12/29/24 Complete (Apresoline 20mg In 17:30 Albuterol 0.083% PHA 12/29/24 Complete 2.5mg/3ml (Proventil 18:00 Sodium Polystyr Sulf PHA 12/29/24 Complete 15gm (Kayexalate 15 18:00 Hydralazine 25mg Tab PHA 12/29/24 Complete ([id number] Tab 19:00 Nitroglycerin 0.4mg PHA 12/29/24 Complete Sl Tab (Nitrostat) 18:53 Current Medications Medications (Trade) Dose Ordered Sig/Ely Route PRN Reason Start Time Stop Time Status Last Admin Dose Admin Albuterol Sulfate (Proventil 0.083% 2.5mg/3ml) 10 mg ONCE IH 12/29/24 18:00 12/29/24 19:54 DC Hydralazine HCl (APRESOLine 20MG INJ) 20 mg ONCE ONCE IV 12/29/24 17:30 12/29/24 18:55 DC Hydralazine HCl ([id number] TAB) 25 mg ONCE ONCE PO 12/29/24 19:00 12/29/24 19:01 DC 12/29/24 19:24 Nitroglycerin (Nitrostat) 0.4 mg ONCE STAT SL 12/29/24 18:53 12/29/24 19:01 DC 12/29/24 19:24 Sodium Polystyrene Sulfonate (kayEXALate 15 GM/60 ML) 30 gm ONCE ONCE PO 12/29/24 18:00 12/29/24 18:02 DC 12/29/24 19:23 Vital Signs Date Time Temp Pulse Resp B/P (MAP) Pulse Ox O2 Delivery O2 Flow Rate FiO2 12/29/24 20:03 98.8 70 20 210/69 100 Room Air* 0 21 12/29/24 18:34 98.8 66 20 210/74 100 Room Air* 0 21 12/29/24 17:00 97.9 58 18 214/65 0 1755/POTASSIUM MILDLY ELEVATED 5.2 WE WILL GIVE KAYEXALATE AND ALBUTEROL INHALER. SHE WILL BE GIVEN HYDRALAZINE FOR HER BLOOD PRESSURE AND WE WILL PAGED DR. CLAUDIO FOR FOLLOW UP 1800/DR CLAUDIO RETURNED CALL AND SAID THAT IS OKAY TO TREAT HYPERKALEMIA AND HE WOULD CALL THE DIALYSIS CENTER TODAY TO HAVE HER SET UP FOR HEMODIALYSIS TOMORROW. 193/REPEAT BLOOD PRESSURE 155/74. PATIENT GIVEN ALBUTEROL NEBULIZERS AND KAYEXALATE. SHE WAS AWARE I SPOKE WITH DR. CLAUDIO REGARDING DIALYSIS TOMORROW AND HAD ALREADY CALLED THE DIALYSIS CENTER, SHE HAS AN APPOINTMENT AT 10:00 O'CLOCK TOMORROW MORNING FOR DIALYSIS HEART Score Response (Comments) Value EKG: Repolarization changes 1 Age: > 65yrs (+2) 2 Risk Factors: 3+ risk factors (+2) 2 Initial Troponin: Normal limit (0) 0 Total 5 Medical Decision Making MDM MEDICAL DISCHARGE MAKING BASED ON BASIC LABS AND EKG. PATIENT IN SINUS BRADYCARDIA NO CHANGES ON EKG POTASSIUM 5.2 AND WAS TREATED. SPOKE WITH NEPHROLOGISTS AND HE SAID OKAY TO SEND PATIENT HOME AND HAVE HER FOLLOW UP AT [facility] TOMORROW FOR HEMODIALYSIS AND HE WOULD CALL FOR CHAIR TOMORROW DX & DISP Disposition: Discharge Departure Impression: Primary Impression: Atypical chest pain Additional Impressions: Anemia of chronic kidney failure, Hyperkalemia, ESRD (end stage renal disease) on dialysis Condition: Stable Additional Instructions: FOLLOW-UP WITH PRIMARY CARE PROVIDER IN 1 TO 2 DAYS. TAKE MEDICATIONS DIRECTED HERE IN THE EMERGENCY ROOM. OKAY TO CONTINUE HOME MEDICATIONS UNLESS OTHERWISE DISCUSSED DURING YOUR VISIT IN THE EMERGENCY ROOM TODAY. RETURN TO YOUR NEAREST EMERGENCY ROOM IF SYMPTOMS WORSEN OR IF THERE IS NO IMPROVEMENT. CALL 911 IF YOU NEED IMMEDIATE ASSISTANCE. TAKE TYLENOL OR MOTRIN [id number] NEEDED AND IF NO CONTRAINDICATIONS ARE PRESENT. INCREASE ORAL HYDRATION. A WOUND CULTURE OR URINE CULTURE WAS ORDERED HERE IN THE EMERGENCY ROOM DEPARTMENT PLEASE FOLLOW-UP WITH PRIMARY CARE PROVIDER AND ADVISE THEM TO GET REPEAT PORTS FROM OUR FACILITY. IF YOU HAD ANY MARTIN WRAP/SPLINTS THAT WERE APPLIED HERE, PLEASE DO NOT REMOVE THEM UNTIL YOU SEE YOUR PRIMARY CARE OR SPECIALTY. CONTINUE YOUR BLOOD PRESSURE MEDICATIONS PRESCRIBED. KEEP YOUR APPOINTMENT FOR DIALYSIS ON 12/30/2024 AT 10:AM Referrals: BELEN JAVED MD (PCP) Time of Disposition: 19:39 I have reviewed the case, and I agree with, Diagnosis and Plan RISSA MOORE NP Dec 29, 2024 17:07 JESI MICHELE DO Dec 30, 2024 07:01
[2024-12-29 17:26] LABS: BASOPHILS # (AUTO) 0.07 K/uL (0.00-0.20); BASOPHILS % (AUTO) 0.8 % (0.0-5.0); EOSINOPHILS # (AUTO) 0.19 K/uL (0.00-0.70); EOSINOPHILS % (AUTO) 2.1 % (0.0-8.0); HEMATOCRIT 33.1 % (36-48); IMMATURE GRANULOCYTE ABSOLUTE 0.03 K/uL (0-1); LYMPHOCYTES # (AUTO) 1.5 K/uL (1.0-4.8); LYMPHOCYTES % (AUTO) 16.4 % (21.0-51.0); MEAN CORPUSCULAR HEMOGLOBIN 29.7 pg (27.0-33.0); MEAN CORPUSCULAR HGB CONC 32.3 g/dL (32.0-36.0); MEAN CORPUSCULAR VOLUME 91.9 fL (79-99); MONOCYTES # (AUTO) 0.5 K/uL (0.1-1.0); MONOCYTES % (AUTO) 5.7 % (3.0-13.0); NEUTROPHILS # (AUTO) 6.7 K/uL (1.8-7.7); NEUTROPHILS % (AUTO) 74.7 % (40.0-77.0); PLATELET COUNT (AUTO) 194 K/uL (130-400); RED CELL DISTRIBUTION WIDTH 13.9 % (11.0-15.5); WHITE BLOOD COUNT (AUTO) 8.9 K/uL (4.8-10.8)
[2024-12-29] MEDS ORDERED: hydrALAZine 20MG/ML VIAL IV ONE (17:30)
[2024-12-29 17:39] LABS: CREATININE 5.7 mg/dL (0.5-1.0); POTASSIUM 5.2 mmol/L (3.5-5.1)
[2024-12-29] MEDS ORDERED: ALBUTEROL 0.083% 2.5 MG/3 ML INH IH SCH (18:00)
--- NOTE | 2024-12-29 18:01 | HMCIMG ---
PORTABLE CHEST RADIOGRAPH INDICATION: SHORTNESS A BREATH COMPARISON: 11/10/2024 FINDINGS: Heart size is normal. Pulmonary vascularity appears slightly enlarged. No abnormal pulmonary parenchymal opacity or consolidation identified. No significant pleural effusion noted. No pneumothorax detected. IMPRESSION: Suspect mild pulmonary vascular congestion.
[2024-12-29] MEDS: kayEXALate 15GM/60ML PO ONE (19:23)
[2024-12-29] MEDS: NITROGLYCERIN 0.4 MG SL TAB SL STA (19:24)
[2024-12-29] MEDS: hydrALAZine 25MG TABLET PO ONE (19:24)
[2024-12-29 20:03] VITALS: BP 210/69; PULSE 70; RESP 20; TEMP 98.7; O2SAT 100
--- NOTE | 2024-12-29 20:05 | NUR ---
patient is being discharged at this time, Dr. bailey aware of elevated BP. patient is set up for dialysis tomorrow at 1200
--- NOTE | 2024-12-30 05:28 | EKG ---
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
== END 2024-12-29 20:07 | disposition home or self-care (01) ==
LOC: EDH 16:58
DX: I12.0 Hypertensive chronic kidney disease with stage 5 chronic kidney disease or end stage renal disease (principal); E11.22 Type 2 diabetes mellitus with diabetic chronic kidney disease; D63.1 Anemia in chronic kidney disease; N18.6 End stage renal disease; R07.89 Other chest pain; E87.5 Hyperkalemia; E03.9 Hypothyroidism, unspecified; E66.01 Morbid (severe) obesity due to excess calories; E78.00 Pure hypercholesterolemia, unspecified; Z79.899 Other long term (current) drug therapy; Z88.0 Allergy status to penicillin; Z99.2 Dependence on renal dialysis
CPT/HCPCS: 36415; 71045; 80048; 84484; 85025; 93005; 99285

== ENCOUNTER 2025-07-23 13:09 | Emergency (ER) | payer OTHER, MEDICAID ==
[~2025-07-23] VITALS: Ht 142.2 cm; Wt 59.0 kg
[2025-07-23 13:52] LABS: IMMATURE GRANULOCYTE ABSOLUTE 0.03 K/uL (0-1); NUCLEATED RED BLOOD CELLS 0.0 % (0.0-0.19); PLATELET COUNT (AUTO) 206 K/uL (130-400); RED BLOOD CELL COUNT(AUTO) 3.25 MIL/uL (4.00-5.50); RED CELL DISTRIBUTION WIDTH 13.5 % (11.0-15.5); WHITE BLOOD COUNT (AUTO) 9.6 K/uL (4.8-10.8)
--- NOTE | 2025-07-23 14:04 | ERN ---
General Chief Complaint: Abdominal Pain Stated Complaint: ABDOMINAL PAIN Time Seen by MD: 13:20 Source: patient History of Present Illness Initial Comments This patient is a 64-year-old Bengali-speaking female. History was taken with the help of bilingual interpreter. Patient presented with complaints of abdominal pain. She did not have any bowel movement for the past 3 days. Patient stated that she felt an urge to visit restroom but she could only appreciate drops of blood while straining during defecation. Allergies: Coded Allergies: No Known Drug Allergies (Verified Allergy, Unknown, 12/18/22) piperacillin (Unverified Allergy, Unknown, 04/14/23) tazobactam (Unverified Allergy, Unknown, 04/14/23) Home Meds Active Scripts Phenyleph/Pramoxin/Glycr/W.pet (Preparation H Cream) 0.25 %-1 % Cream..g., 1 APPL TP BID for 30 Days, #51 GM 0 Refills Prov:JESI MICHELE DO 07/23/25 Polyethylene Glycol 3350 (Miralax) 17 Gram Powd.pack, 1 PACKET PO DAILY for constipation for 2 Days, #6 PACKET 0 Refills dissolve in water Prov:JESI MICHELE DO 07/23/25 Reported Medications Ibuprofen (Ibuprofen 800 mg Tab) 800 Mg Tab, 1 TAB PO TID PRN for PAIN for 10 Days, #30 TAB 0 Refills 08/21/24 Alendronate Sodium (Alendronate Sodium) 70 Mg Tablet, 70 MG PO QWEEK, TAB 08/21/24 Sevelamer Carbonate (Renvela Pwdr) 0.8 Gram Powder, 800 MG PO TID, APPL 08/21/24 Metoprolol Tartrate (Metoprolol Tartrate) 100 Mg Tablet, 100 MG PO BID, TAB 08/21/24 Torsemide (Torsemide) 100 Mg Tablet, 100 MG PO DAILY, TAB 08/21/24 Losartan Potassium (Losartan Potassium) 100 Mg Tablet, 100 MG PO AM, TAB 08/04/23 Rosuvastatin Calcium (Rosuvastatin Calcium) 10 Mg Tablet, 10 MG PO AM, TAB 08/04/23 Duloxetine HCl (Duloxetine HCl) 30 Mg Capsule.dr, 30 MG PO AM, CAP 08/04/23 Hydralazine HCl (Hydralazine HCl) 50 Mg Tablet, 50 MG PO BID, TAB 08/04/23 Levothyroxine Sodium (Levothyroxine Sodium) 50 Mcg Tablet, 50 MCG PO ACBKFST, TAB 08/04/23 Metolazone (Metolazone) 5 Mg Tablet, 5 MG PO DAILY, TAB 03/20/23 Nifedipine (Nifedipine ER) 90 Mg Tablet.er, 90 MG PO DAILY, TAB 03/20/23 Isosorbide Mononitrate (Isosorbide Mononitrate ER) 30 Mg Tab.er.24h, 30 MG PO DAILY, TAB 03/20/23 Past Medical History Past Medical History: Arthritis, Asthma, Diabetes-Type II, High Cholesterol, Hypertension, Renal Disese, Renal Failure Medical History Other: PSORIASIS, morbidly obese Past Surgical History: , LAVA Surgical History Other: RT LEG SX Family History Family History: HTN Social History Social History: Negative, Lives with family Female( History) History: Not Applicable Constitutional: (-) chills, (-) diaphoresis, (-) fever, (-) malaise, (-) weakness, (-) other documentation EENTM: (-) eye pain, (-) blurred vision, (-) tearing, (-) double vision, (-) ear pain, (-) ear discharge, (-) nose pain, (-) nose congestion, (-) throat pain, (-) Throat swelling, (-) mouth pain, (-) tooth pain, (-) mouth swelling, (-) other documentation Respiratory: (-) cough, (-) orthopnea, (-) short of breath, (-) stridor, (-) wheezing, (-) other documentation Gastrointestinal/Abdominal: (+) abdominal pain, (+) abdominal distention, (+) constipation Musculoskeletal: (-) Neck pain, (-) back pain, (-) Flank Pain, (-) joint pain, (-) joint swelling, (-) muscle pain, (-) muscle stiffness, (-) gout, (-) other documentation Hematologic/Lymphatic: (-) anemia, (-) blood clots, (-) easy bleeding, (-) easy bruising, (-) swollen glands, (-) other documentation Physical Exam General Appearance: (+) no apparent distress Orientation: (+) alert, (+) oriented x 3 Ear, Nose, Throat: (+) hearing grossly normal, (+) normal ENT inspection, (+) moist mucous membraine Neck: (+) normal inspection, (+) supple, (+) full range of motion Respiratory: (+) chest non-tender, (+) lungs clear Gastrointestinal: (+) distended, (+) tender (Right lower quadrant) Extremities: (+) normal range of motion, (+) non-tender Neurologic/Psychiatric: (+) normal speech, (+) no motor defecits, (+) no sensor y deficits Results Laboratory and Microbiology Lab and Micro Result Laboratory Tests Test 07/23/25 13:41 White Blood Count 9.6 K/uL (4.8-10.8) Red Blood Count 3.25 MIL/uL (4.00-5.50) L Hemoglobin 10.1 g/dL (12.0-16.0) L Hematocrit 31.8 % (36-48) L Mean Corpuscular Volume 97.8 fL (79-99) Mean Corpuscular Hemoglobin 31.1 pg (27.0-33.0) Mean Corpuscular Hemoglobin Concent 31.8 g/dL (32.0-36.0) L Red Cell Distribution Width 13.5 % (11.0-15.5) Platelet Count 206 K/uL (130-400) Mean Platelet Volume 10.5 fL (7.5-10.5) Immature Granulocyte % (Auto) 0.3 % (0-1) Neutrophils (%) (Auto) 75.2 % (40.0-77.0) Lymphocytes (%) (Auto) 11.7 % (21.0-51.0) L Monocytes (%) (Auto) 8.5 % (3.0-13.0) Eosinophils (%) (Auto) 3.8 % (0.0-8.0) Basophils (%) (Auto) 0.5 % (0.0-5.0) Neutrophils # (Auto) 7.2 K/uL (1.8-7.7) Lymphocytes # (Auto) 1.1 K/uL (1.0-4.8) Monocytes # (Auto) 0.8 K/uL (0.1-1.0) Eosinophils # (Auto) 0.36 K/uL (0.00-0.70) Basophils # (Auto) 0.05 K/uL (0.00-0.20) Absolute Immature Granulocyte (auto 0.03 K/uL (0-1) Nucleated Red Blood Cells 0.0 % (0.0-0.19) Sodium Level 135 mmol/L (136-145) L Potassium Level 5.0 mmol/L (3.5-5.1) Chloride Level 95 mmol/L (101-111) L Carbon Dioxide Level 32 mmol/L (21-32) Blood Urea Nitrogen 58 mg/dL (7-18) H Creatinine 6.5 mg/dL (0.5-1.0) H Glomerular Filtration Rate Calc 7 mL/min (>90) Random Glucose 137 mg/dL (70-105) H Total Calcium 8.3 mg/dL (8.5-10.1) L Total Bilirubin 0.4 mg/dL (0.2-1.0) Direct Bilirubin 0.1 mg/dL (0.0-0.3) Aspartate Amino Transf (AST/SGOT) 16 U/L (10-37) Alanine Aminotransferase (ALT/SGPT) 20 U/L (12-78) Alkaline Phosphatase 173 U/L (50-136) H Total Protein 7.2 g/dL (6.0-8.3) Albumin 3.5 g/dL (3.5-5.0) MDM CC: generalized abd pain, decreased stooling Historian: patient Comorbidities: arthritis, DLD, HTN, ESRD on dialysis, DM2 Limitations: none Ddx: SBO, constipation, surgical pathology, other VS: mild HTN 146/42, otherwise stable. Labs (independently interpreted by me): No luekocytosis, normocytic anemia Hg 10.1. Chemistry shows stable electrolytes, renal function baseline, LFTs stable. CT abdomen pelvis: no acute abnormalities Treatment in ED: enema Patient had enema, still felt that there is stool. Performed rectal exam, no stool in the vault. Symptoms consistent with constipation. Will need miralax/oral treatment. DC. ED Course Orders Procedure Category Date Status Time Cbc With Differential LAB 07/23/25 Complete 13:35 Basic Metabolic Panel LAB 07/23/25 Complete 13:35 Hepatic Function Panel LAB 07/23/25 Complete 13:35 Ct Abdomen/Pelvis W/O CT 07/23/25 Resulted Contrast 13:35 Enema Instructions CPOE 07/23/25 Transmitted 15:17 Vital Signs Date Time Temp Pulse Resp B/P (MAP) Pulse Ox O2 Delivery O2 Flow Rate FiO2 07/23/25 17:40 98.1 83 19 144/54 98 Room Air* 0 21 07/23/25 15:24 98.1 79 19 151/61 98 Room Air* 0 21 07/23/25 13:11 98.1 85 20 146/42 97 Room Air 0 DX & DISP Disposition: Discharge Departure Impression: Primary Impression: Constipation Condition: Stable Assign Patient to: Your symptoms are consistent with constipation. You also have an external hemorrhoid. I have prescribed MiraLax. Take one packet up to 3 times a day for the next two days. Be sure to drink plenty of water with this medication. Eat plenty of prunes. Eat a diet full of fruit. Avoid processed foods. You need a high-fiber diet. You also have a small external hemorrhoid. I have prescribed a cream that you can apply twice per day. Please follow up with your primary doctor. Return to the emergency department as needed. Scripts Phenyleph/Pramoxin/Glycr/W.pet (Preparation H Cream) 0.25 %-1 % Cream..g. 1 APPL TP BID for 30 Days, #51 GM 0 Refills Prov: JESI MICHELE DO 07/23/25 Polyethylene Glycol 3350 (Miralax) 17 Gram Powd.pack 1 PACKET PO DAILY for constipation for 2 Days, #6 PACKET 0 Refills dissolve in water Prov: JESI MICHELE DO 07/23/25 Referrals: BELEN JAVED MD (PCP) I performed a substantive portion of the visit. I have reviewed and personally made and approve the management plan that is documented in the notes by myself with CHRISS/resident. I acknowledged full responsibility for the patient's management plan. SALUD MERINO MD Jul 23, 2025 14:04 JESI MICHELE DO Jul 23, 2025 17:32
[2025-07-23 14:07] LABS: ASPARTATE AMINOTRANSFERASE 16.0 U/L (10-37); CREATININE 6.5 mg/dL (0.5-1.0); GLOMERULAR FILTR. RATE CALC 7.0 mL/min (>90); GLUCOSE,RANDOM 137.0 mg/dL (70-105); SODIUM SERUM 135.0 mmol/L (136-145); TOTAL PROTEIN, SERUM 7.2 g/dL (6.0-8.3); UREA NITROGEN, BLOOD 58.0 mg/dL (7-18)
--- NOTE | 2025-07-23 14:48 | HMCIMG ---
EXAM: CT Abdomen and Pelvis Without IV contrast CLINICAL HISTORY: Constipation and abdominal pain TECHNIQUE: Axial computed tomography images of the abdomen and pelvis without intravenous contrast. CONTRAST: No IV contrast. COMPARISON: Study dated 07/17/24. FINDINGS: LUNG BASES: The lung bases appear clear. No pleural effusions are seen. LIVER: Unremarkable. GALLBLADDER AND BILE DUCTS: The gallbladder appears within normal limits. No radioopaque gallstones are seen. No biliary ductal dilatation is evident. PANCREAS: Unremarkable. SPLEEN: Unremarkable. ADRENAL GLANDS: Unremarkable. KIDNEYS, URETERS, AND BLADDER: Mild bilateral perinephric fat stranding is concerning for renal parenchymal disease. There is no hydronephrosis or hydroureter. No urinary calculi are seen. Bladder wall thickening may be accentuated by under distention versus cystitis, recommend correlation with urinalysis. STOMACH AND BOWEL: Small sliding hiatus hernia. Unremarkable appearance of the stomach and bowel. No evidence of bowel obstruction. No evidence suggesting enteritis or colitis. APPENDIX: No evidence of acute appendicitis on CT examination. PERITONEUM: No free fluid. No free air. LYMPH NODES: No lymphadenopathy is evident. REPRODUCTIVE: Post-hysterectomy status. VASCULATURE: Atherosclerotic changes in the form of eccentric vessel wall calcification in the abdominal aorta and its major branches. Partially visualized bypass graft within the proximal left leg. No evidence of abdominal aortic aneurysm. BONES: Degenerative changes in the visualized spine in the form of marginal osteophytes and degenerative discs at multiple lumbar levels. No aggressive appearing osseous lesion. No acute osseous pathology evident.IMPRESSION: 1. No acute intraabdominal or pelvic pathology. 2. Mild bilateral perinephric fat stranding, concerning for renal parenchymal disease. 3. Bladder wall thickening, possibly due to underdistention versus cystitis. Correlation with urinalysis recommended. /[place]
[2025-07-23] MEDS ORDERED: POLY17PO4 PO (17:31)
[2025-07-23] MEDS ORDERED: PHEN26CR2 TP (17:31)
[2025-07-23 17:40] VITALS: BP 144/54; PULSE 83; RESP 19; TEMP 98; O2SAT 98
== END 2025-07-23 17:45 | disposition home or self-care (01) ==
LOC: EDH 13:09
DX: K59.00 Constipation, unspecified (principal); I12.9 Hypertensive chronic kidney disease with stage 1 through stage 4 chronic kidney disease, or unspecified chronic kidney disease; E11.22 Type 2 diabetes mellitus with diabetic chronic kidney disease; N18.9 Chronic kidney disease, unspecified; E66.01 Morbid (severe) obesity due to excess calories; E78.00 Pure hypercholesterolemia, unspecified; J45.909 Unspecified asthma, uncomplicated; M19.90 Unspecified osteoarthritis, unspecified site; Z79.899 Other long term (current) drug therapy; Z88.0 Allergy status to penicillin; Z99.2 Dependence on renal dialysis
CPT/HCPCS: 36415; 74176; 80048; 80076; 85025; 99284